=== PATIENT | female | born 1950 | race African-American/Black ===

== ENCOUNTER 2017-03-26 05:31 | Inpatient (IN) ==
[2017-03-12 10:33] LABS: Basophils % 0.2 % (0.0-0.8); Immature Granulocytes % 0.3 %; Immature Granulocytes Absolute 0.03 #; Lymphocytes # 4.4 10*3/uL (1.4-4.0); Mean Corpuscular HGB Conc 32.4 GM/DL (32-36); Mean Corpuscular Hemoglobin 28 PG (27-34); Mean Corpuscular Volume 85.4 FL (87-102); Mean Platelet Volume 9.7 FL (9.6-12.0); Monocytes # 0.7 10*3/uL (0.11-0.8); Monocytes % 6.9 % (1.7-12.7); Neutrophils # 5.6 10*3/uL (1.4-7.4); Neutrophils % 51.6 % (38.7-73.9); Platelet Count 196 T/CUMM (130-400); Red Blood Count 3.98 MC/CUMM (3.8-5.5); Red Cell Distribution Width 15.6 % (9.3-17.3); White Blood Count 10.8 T/CUMM (4-12)
[2017-03-12 10:41] LABS: Apearance,Urine Slightly Hazy (Clear); Bacteria,Urine Occasional /HPF (Few); Bilirubin,Urine Negative (Negative); Blood, Urine Negative (Negative); Glucose,Urine (UA) Negative (Negative); Hyaline Casts,Urine 5 /LPF (0-3); Ketones,Urine Negative (Negative); Nitrite,Urine Negative (Negative); Protein,Urine Negative; RBC,Urine 1 /HPF (0-4); Urine Color Straw (Yellow); Urine Specific Gravity 1.005 (1.001-1.035); Urine Urobilinogen < 2.0 EU/DL (0.2-1.0); WBC,Urine 1 /HPF (0-6)
[2017-03-12 10:48] LABS: PT Patient Result 10.7 SECS; Partial Thromboplastin Time 26.6 SECS (0-40)
[2017-03-12 11:21] LABS: Albumin 2.9 G/DL (3.4-5.0); Bilirubin,Total 0.5 MG/DL (0.2-1.0); Calcium 8.8 MG/DL (8.5-10.1); Osmolality,Calculated 282.5 MOS/KG (273-304); Potassium 3.6 MMOL/L (3.5-5.1); Total Protein 7.7 G/DL (6.4-8.3)
[2017-03-26] MEDS ORDERED: VANCOMYCIN INJ 1,000 MG in SODIUM CHLORIDE 0.9% 250 ML IV ONE (06:00)
[2017-03-26] MEDS ORDERED: CLINDAMYCIN INJ 900 MG in PREMIX 1 EACH IV ONE (06:00)
[2017-03-26] MEDS ORDERED: ceFAZolin 1,000 MG VIAL ONE (06:49)
[2017-03-26] MEDS ORDERED: SODIUM CHLORIDE 0.9% 50 ML IV ONE (06:49)
[2017-03-26] MEDS ORDERED: VANCOMYCIN 1,000 MG VIAL ONE (06:49)
[2017-03-26] MEDS ORDERED: DIAZEPAM 5 MG TABLET PO ONE (07:48)
[2017-03-26] MEDS ORDERED: FAMOTIDINE 20 MG TABLET PO ONE (07:48)
[2017-03-26] MEDS: LACTATED RINGERS 1,000 ML IV SCH ×4 (07:50→13:30)
[2017-03-26] MEDS ORDERED: DIAZEPAM 5 MG TABLET ONE (07:53)
[2017-03-26] MEDS ORDERED: FAMOTIDINE 20 MG TABLET ONE (07:53)
[2017-03-26] MEDS ORDERED: BACITRACIN OINT 0.9 GM PACK TOP ONE (09:00)
[2017-03-26] MEDS ORDERED: PROPOFOL 200 MG/20 ML VIAL IV ONE (09:17)
[2017-03-26] MEDS ORDERED: ONDANSETRON 4 MG/2 ML VIAL ONE (09:17)
[2017-03-26] MEDS ORDERED: PHENYLEPHRINE 1 MG/10 ML SYRINGE IV ONE (09:17)
[2017-03-26] MEDS ORDERED: GLYCOPYRROLATE 0.4 MG/2 ML VIAL ONE (09:17)
[2017-03-26] MEDS ORDERED: LIDOCAINE 2% 5 ML VIAL ONE (09:17)
[2017-03-26] MEDS ORDERED: ROPIVACAINE 0.5% 30 ML VIAL ONE (10:26)
[2017-03-26] MEDS ORDERED: ALBUTEROL 0.63 MG/3 ML NEB RESP TX PRN (11:40)
[2017-03-26] MEDS ORDERED: DEXTROSE 50% 25 GM/50 ML VIAL IV PRN (11:50)
[2017-03-26] MEDS ORDERED: GLUCAGON 1 MG VIAL IM PRN (11:50)
[2017-03-26] MEDS ORDERED: oxyCODONE IR 5 MG TABLET PO PRN ×2 (11:51)
[2017-03-26] MEDS ORDERED: ONDANSETRON 4 MG/2 ML VIAL IV PRN (11:51)
[2017-03-26] MEDS ORDERED: KETAMINE 500 MG/10 ML VIAL ONE (11:52)
[2017-03-26] MEDS ORDERED: fentaNYL 100 MCG/2 ML VIAL ONE (11:53)
[2017-03-26] MEDS ORDERED: LACTATED RINGERS 1,000 ML IV ONE (11:53)
[2017-03-26] MEDS ORDERED: MIDAZOLAM 2 MG/2 ML VIAL ONE (11:53)
[2017-03-26] MEDS ORDERED: ACETAMINOPHEN 1,000 MG/100 ML VIAL IV ONE (11:53)
[2017-03-26] MEDS ORDERED: SODIUM CHLORIDE 0.9% 200 ML IV ONE (11:54)
[2017-03-26] MEDS ORDERED: INFLUENZA VIRUS VACCINE 0.5 ML SYRINGE IM ONE (13:44)
[2017-03-26] MEDS: MORPHINE 2 MG/1 ML SYRINGE IV PRN ×3 (14:09→21:33)
[2017-03-26] MEDS: KETOROLAC 30 MG/1 ML VIAL IV SCH ×2 (14:10→17:34)
[2017-03-26] MEDS: LOSARTAN/HCTZ 50-12.5 MG TABLET PO SCH (15:27)
[2017-03-26] MEDS: FUROSEMIDE 40 MG TABLET PO SCH ×2 (15:27→15:35)
[2017-03-26] MEDS: ACETAMINOPHEN 500 MG TABLET PO SCH (15:27)
[2017-03-26] MEDS: POTASSIUM CHLORIDE INJ 20 MEQ in LACTATED RINGERS 1,000 ML IV SCH ×2 (15:28→20:14)
[2017-03-26] MEDS: CLINDAMYCIN INJ 900 MG in PREMIX 1 EACH IV SCH (15:35)
[2017-03-26] MEDS: INSULIN ASPART PROTAMINE/ASPART 70/30 100 UNIT/ML SUBCUT SCH (17:33)
[2017-03-26] MEDS: INSULIN LISPRO 100 UNIT/ML SUBCUT SCH ×2 (17:34→21:33)
[2017-03-26] MEDS: GABAPENTIN 300 MG CAPSULE PO SCH (21:34)
[2017-03-26] MEDS: DOCUSATE SODIUM 100 MG CAPSULE PO SCH (21:34)
[2017-03-26] MEDS: POTASSIUM CHLORIDE 10 MEQ TABLET PO SCH (21:34)
[2017-03-27] MEDS: ACETAMINOPHEN 500 MG TABLET PO SCH ×3 (00:17→10:37)
[2017-03-27] MEDS: KETOROLAC 30 MG/1 ML VIAL IV SCH ×2 (00:17→06:17)
[2017-03-27] MEDS: CLINDAMYCIN INJ 900 MG in PREMIX 1 EACH IV SCH (00:17)
[2017-03-27 03:48] LABS: Basophils % 0.1 % (0.0-0.8); Hemoglobin 8.8 GM/DL (12.0-16.0); Immature Granulocytes % 0.3 %; Immature Granulocytes Absolute 0.04 #; Lymphocytes # 3.1 10*3/uL (1.4-4.0); Mean Corpuscular HGB Conc 32.6 GM/DL (32-36); Mean Corpuscular Hemoglobin 28 PG (27-34); Mean Corpuscular Volume 86.3 FL (87-102); Monocytes # 1.6 10*3/uL (0.11-0.8); Monocytes % 11.8 % (1.7-12.7); Neutrophils # 8.9 10*3/uL (1.4-7.4); Neutrophils % 64.8 % (38.7-73.9); Platelet Count 169 T/CUMM (130-400); Red Blood Count 3.13 MC/CUMM (3.8-5.5); White Blood Count 13.7 T/CUMM (4-12)
[2017-03-27] MEDS: POTASSIUM CHLORIDE INJ 20 MEQ in LACTATED RINGERS 1,000 ML IV SCH ×2 (04:00→04:09)
[2017-03-27 04:25] LABS: Calcium 7.9 MG/DL (8.5-10.1); Osmolality,Calculated 282.3 MOS/KG (273-304); Potassium 3.9 MMOL/L (3.5-5.1)
[2017-03-27] MEDS: FONDAPARINUX 2.5 MG/0.5 ML SYRINGE SUBCUT SCH (06:17)
[2017-03-27] MEDS: LEVOTHYROXINE 25 MCG TABLET PO SCH (06:17)
[2017-03-27] MEDS: MORPHINE 2 MG/1 ML SYRINGE IV PRN ×2 (06:26→13:08)
[2017-03-27] MEDS: LACTATED RINGERS 1,000 ML IV SCH (06:30)
[2017-03-27] MEDS: INSULIN LISPRO 100 UNIT/ML SUBCUT SCH ×4 (07:30→20:55)
[2017-03-27] MEDS: ARIPiprazole 10 MG TABLET PO SCH (09:08)
[2017-03-27] MEDS: FUROSEMIDE 40 MG TABLET PO SCH ×2 (09:08→18:07)
[2017-03-27] MEDS: DOCUSATE SODIUM 100 MG CAPSULE PO SCH ×2 (09:09→20:57)
[2017-03-27] MEDS: MONTELUKAST 10 MG TABLET PO SCH (09:10)
[2017-03-27] MEDS: PARoxetine 20 MG TABLET PO SCH (09:10)
[2017-03-27] MEDS: POTASSIUM CHLORIDE 10 MEQ TABLET PO SCH ×2 (09:10→20:57)
[2017-03-27] MEDS: GABAPENTIN 300 MG CAPSULE PO SCH ×2 (09:10→20:58)
[2017-03-27] MEDS: CHOLECALCIFEROL 1,000 UNIT TABLET PO SCH (09:10)
[2017-03-27] MEDS: PANTOPRAZOLE 40 MG TABLET PO SCH (09:10)
[2017-03-27] MEDS: INSULIN ASPART PROTAMINE/ASPART 70/30 100 UNIT/ML SUBCUT SCH ×2 (09:13→18:09)
[2017-03-27] MEDS: LOSARTAN/HCTZ 50-12.5 MG TABLET PO SCH (09:17)
[2017-03-27] MEDS: NEBIVOLOL 10 MG TABLET PO SCH (09:17)
[2017-03-27] MEDS: ZINC OXIDE PASTE 113 GM TUBE TOP SCH ×2 (10:30→21:00)
[2017-03-27] MEDS: CELECOXIB 200 MG CAPSULE PO SCH (18:09)
[2017-03-28] MEDS: MORPHINE 2 MG/1 ML SYRINGE IV PRN ×3 (03:15→14:28)
[2017-03-28 05:03] LABS: Basophils % 0.2 % (0.0-0.8); Eosinophils % 0.1 % (0.00-10.9); Hematocrit 24.3 VOL% (35.7-47.0); Hemoglobin 7.8 GM/DL (12.0-16.0); Immature Granulocytes % 0.2 %; Immature Granulocytes Absolute 0.03 #; Lymphocytes # 3.4 10*3/uL (1.4-4.0); Lymphocytes % 27.3 % (21.3-54.2); Mean Corpuscular HGB Conc 32.1 GM/DL (32-36); Mean Corpuscular Hemoglobin 28 PG (27-34); Mean Corpuscular Volume 87.7 FL (87-102); Mean Platelet Volume 10.5 FL (9.6-12.0); Monocytes # 1.5 10*3/uL (0.11-0.8); Monocytes % 12.4 % (1.7-12.7); Neutrophils # 7.4 10*3/uL (1.4-7.4); Neutrophils % 59.8 % (38.7-73.9); Platelet Count 157 T/CUMM (130-400); Red Blood Count 2.77 MC/CUMM (3.8-5.5); Red Cell Distribution Width 16.6 % (9.3-17.3); White Blood Count 12.4 T/CUMM (4-12)
[2017-03-28] MEDS ORDERED: FUROSEMIDE 40 MG/4 ML VIAL IV PRN (06:17)
[2017-03-28] MEDS: LEVOTHYROXINE 25 MCG TABLET PO SCH (06:17)
[2017-03-28] MEDS: FONDAPARINUX 2.5 MG/0.5 ML SYRINGE SUBCUT SCH (06:17)
[2017-03-28] MEDS ORDERED: SODIUM CHLORIDE 0.9% 250 ML IV PRN (06:17)
[2017-03-28] MEDS: FUROSEMIDE 40 MG TABLET PO SCH ×2 (08:53→17:10)
[2017-03-28] MEDS: INSULIN LISPRO 100 UNIT/ML SUBCUT SCH ×4 (08:53→21:08)
[2017-03-28] MEDS: DOCUSATE SODIUM 100 MG CAPSULE PO SCH ×2 (08:54→21:07)
[2017-03-28] MEDS: ARIPiprazole 10 MG TABLET PO SCH (08:54)
[2017-03-28] MEDS: LOSARTAN/HCTZ 50-12.5 MG TABLET PO SCH (08:54)
[2017-03-28] MEDS: NEBIVOLOL 10 MG TABLET PO SCH (08:54)
[2017-03-28] MEDS: CELECOXIB 200 MG CAPSULE PO SCH (08:54)
[2017-03-28] MEDS: PARoxetine 20 MG TABLET PO SCH (08:55)
[2017-03-28] MEDS: POTASSIUM CHLORIDE 10 MEQ TABLET PO SCH ×2 (08:55→21:07)
[2017-03-28] MEDS: GABAPENTIN 300 MG CAPSULE PO SCH ×2 (08:55→21:07)
[2017-03-28] MEDS: MONTELUKAST 10 MG TABLET PO SCH (08:56)
[2017-03-28] MEDS: PANTOPRAZOLE 40 MG TABLET PO SCH (08:56)
[2017-03-28] MEDS: CHOLECALCIFEROL 1,000 UNIT TABLET PO SCH (08:56)
[2017-03-28] MEDS: INSULIN ASPART PROTAMINE/ASPART 70/30 100 UNIT/ML SUBCUT SCH ×2 (09:00→17:11)
[2017-03-28] MEDS: MAGNESIUM HYDROXIDE SUSP 30 ML UDCUP PO PRN ×2 (09:00→21:07)
[2017-03-28] MEDS: ZINC OXIDE PASTE 113 GM TUBE TOP SCH ×2 (11:44→21:08)
[2017-03-29 05:37] LABS: Basophils % 0.2 % (0.0-0.8); Eosinophils # 0.6 10*3/uL (0.0-0.87); Eosinophils % 4.7 % (0.00-10.9); Hematocrit 29.2 VOL% (35.7-47.0); Hemoglobin 9.5 GM/DL (12.0-16.0); Immature Granulocytes % 0.3 %; Immature Granulocytes Absolute 0.04 #; Lymphocytes # 3.8 10*3/uL (1.4-4.0); Mean Corpuscular HGB Conc 32.5 GM/DL (32-36); Mean Corpuscular Hemoglobin 28 PG (27-34); Mean Corpuscular Volume 86.1 FL (87-102); Mean Platelet Volume 10.7 FL (9.6-12.0); Monocytes # 1.6 10*3/uL (0.11-0.8); Monocytes % 13.3 % (1.7-12.7); Neutrophils # 6.2 10*3/uL (1.4-7.4); Neutrophils % 50.5 % (38.7-73.9); Platelet Count 147 T/CUMM (130-400); Red Blood Count 3.39 MC/CUMM (3.8-5.5); Red Cell Distribution Width 17.3 % (9.3-17.3); White Blood Count 12.2 T/CUMM (4-12)
[2017-03-29] MEDS: FONDAPARINUX 2.5 MG/0.5 ML SYRINGE SUBCUT SCH (05:59)
[2017-03-29] MEDS: LEVOTHYROXINE 25 MCG TABLET PO SCH (06:00)
[2017-03-29] MEDS: INSULIN LISPRO 100 UNIT/ML SUBCUT SCH ×2 (07:57→12:18)
[2017-03-29] MEDS: FUROSEMIDE 40 MG TABLET PO SCH (10:22)
[2017-03-29] MEDS: LOSARTAN/HCTZ 50-12.5 MG TABLET PO SCH (10:22)
[2017-03-29] MEDS: CELECOXIB 200 MG CAPSULE PO SCH (10:22)
[2017-03-29] MEDS: NEBIVOLOL 10 MG TABLET PO SCH (10:23)
[2017-03-29] MEDS: POTASSIUM CHLORIDE 10 MEQ TABLET PO SCH (10:23)
[2017-03-29] MEDS: MONTELUKAST 10 MG TABLET PO SCH (10:23)
[2017-03-29] MEDS: ARIPiprazole 10 MG TABLET PO SCH (10:23)
[2017-03-29] MEDS: DOCUSATE SODIUM 100 MG CAPSULE PO SCH (10:23)
[2017-03-29] MEDS: CHOLECALCIFEROL 1,000 UNIT TABLET PO SCH (10:23)
[2017-03-29] MEDS: PARoxetine 20 MG TABLET PO SCH (10:24)
[2017-03-29] MEDS: PANTOPRAZOLE 40 MG TABLET PO SCH (10:24)
[2017-03-29] MEDS: GABAPENTIN 300 MG CAPSULE PO SCH (10:24)
[2017-03-29] MEDS: INSULIN ASPART PROTAMINE/ASPART 70/30 100 UNIT/ML SUBCUT SCH (10:28)
[2017-03-29] MEDS: ZINC OXIDE PASTE 113 GM TUBE TOP SCH (10:29)
[2017-03-29 11:12] VITALS: BP 130/73
== END 2017-03-29 12:17 | DRG 470 ==
LOC: N.OR 05:31 → N.SDSINP 05:32 → N.3E 11:51
PROVIDERS: ADMIT Orthopaedic Surgery; ATTEND Orthopaedic Surgery

== ENCOUNTER 2020-04-06 10:48 | Inpatient (IN) ==
[2020-04-06] MEDS ORDERED: ONDANSETRON 4 MG/2 ML VIAL IV STA (11:38)
[2020-04-06] MEDS ORDERED: MORPHINE 4 MG/1 ML VIAL IV STA (13:14)
[2020-04-06 13:28] LABS: Bilirubin,Urine Negative (Negative); Blood, Urine Negative (Negative); Glucose,Urine (UA) Negative (Negative); Ketones,Urine Negative (Negative); Mucus,Urine Occasional /LPF (Occasional); Nitrite,Urine Negative (Negative); Protein,Urine Negative; RBC,Urine 1 /HPF (0-4); Squamous Epithelial Cell,Urine Occasional /HPF (0-10); Urine Appearance CLEAR (Clear); Urine Color Yellow (Yellow); Urine Urobilinogen < 2.0 EU/DL (0.2-1.0); WBC,Urine 1 /HPF (0-6)
[2020-04-06 13:39] LABS: Basophils % 0.1 % (0.0-0.8); Hematocrit 36.1 VOL% (35.7-47.0); Hemoglobin 11.8 GM/DL (12.0-16.0); Immature Granulocytes % 0.6 %; Immature Granulocytes Absolute 0.09 #; Lymphocytes # 1.7 10*3/uL (1.4-4.0); Lymphocytes % 12.1 % (21.3-54.2); Mean Corpuscular HGB Conc 32.7 GM/DL (32-36); Mean Corpuscular Volume 86.4 FL (87-102); Mean Platelet Volume 10.2 FL (9.6-12.0); Monocytes % 7.1 % (1.7-12.7); Neutrophils % 80.1 % (38.7-73.9); Platelet Count 263 T/CUMM (130-400); Red Blood Count 4.18 MC/CUMM (3.8-5.5); White Blood Count 14.3 T/CUMM (4-12)
[2020-04-06 14:13] LABS: Albumin 3.3 G/DL (3.4-5.0); Bilirubin,Total 0.6 MG/DL (0.2-1.0); Calcium 9.4 MG/DL (8.5-10.1); Total Protein 8.7 G/DL (6.4-8.3)
[2020-04-06] MEDS ORDERED: DEXTROSE 50% 25 GM/50 ML VIAL IV PRN (14:58)
[2020-04-06] MEDS ORDERED: GLUCAGON 1 MG VIAL IM PRN (14:58)
[2020-04-06] MEDS ORDERED: HYDROmorphone 2 MG/1 ML VIAL IV STA (15:07)
[2020-04-06] MEDS ORDERED: CEFAZOLIN IV SCH (16:00)
[2020-04-06] MEDS: SODIUM CHLORIDE 0.9% 1,000 ML IV SCH (16:07)
[2020-04-06] MEDS: INSULIN LISPRO 100 UNIT/ML SUBCUT SCH (19:09)
[2020-04-06] MEDS ORDERED: INFLUENZA VIRUS VACCINE 0.5 ML SYRINGE IM ONE (19:17)
[2020-04-06] MEDS: HYDROmorphone 2 MG/1 ML VIAL IV PRN (21:09)
[2020-04-07 01:50] LABS: Bilirubin,Urine Negative (Negative); Blood, Urine Negative (Negative); Glucose,Urine (UA) Negative (Negative); Ketones,Urine 5 mg/dL (Negative); Mucus,Urine Occasional /LPF (Occasional); Nitrite,Urine Negative (Negative); Protein,Urine Negative; RBC,Urine 4 /HPF (0-4); Squamous Epithelial Cell,Urine Occasional /HPF (0-10); Urine Appearance CLEAR (Clear); Urine Color Yellow (Yellow); Urine Specific Gravity 1.058 (1.001-1.035); Urine Urobilinogen < 2.0 EU/DL (0.2-1.0); WBC,Urine 1 /HPF (0-6)
[2020-04-07] MEDS: HYDROmorphone 2 MG/1 ML VIAL IV PRN ×5 (03:03→20:57)
[2020-04-07] MEDS: SODIUM CHLORIDE 0.9% 1,000 ML IV SCH ×3 (05:06→23:55)
[2020-04-07 05:47] LABS: Basophils % 0.2 % (0.0-0.8); Eosinophils % 0.1 % (0.00-10.9); Hematocrit 36.3 VOL% (35.7-47.0); Hemoglobin 11.5 GM/DL (12.0-16.0); Immature Granulocytes % 0.5 %; Immature Granulocytes Absolute 0.08 #; Lymphocytes # 1.8 10*3/uL (1.4-4.0); Lymphocytes % 11.6 % (21.3-54.2); Mean Corpuscular HGB Conc 31.7 GM/DL (32-36); Mean Corpuscular Volume 87.1 FL (87-102); Mean Platelet Volume 10.8 FL (9.6-12.0); Monocytes % 12.1 % (1.7-12.7); Neutrophils % 75.5 % (38.7-73.9); Platelet Count 228 T/CUMM (130-400); Red Blood Count 4.17 MC/CUMM (3.8-5.5); White Blood Count 15.5 T/CUMM (4-12)
[2020-04-07 06:39] LABS: Albumin 2.7 G/DL (3.4-5.0); Bilirubin,Total 0.8 MG/DL (0.2-1.0); Calcium 9.3 MG/DL (8.5-10.1); Osmolality,Calculated 280.5 MOS/KG (273-304); Risk Ratio 2.64; Thyroid Stimulating Hormone 7.81 uIU/ml (0.358-3.74); Total Protein 8.5 G/DL (6.4-8.3); VLDL CHOLESTEROL 16.8 MG/DL
[2020-04-07] MEDS: INSULIN LISPRO 100 UNIT/ML SUBCUT SCH ×5 (08:02→20:48)
[2020-04-07] MEDS: PANTOPRAZOLE 40 MG VIAL IV SCH (08:03)
[2020-04-07] MEDS: risperiDONE 1 MG TABLET PO SCH (20:58)
[2020-04-07] MEDS: CARBIDOPA/LEVODOPA 10-100 MG TABLET PO SCH (20:58)
[2020-04-07] MEDS: BUDESONIDE/FORMOTEROL 160-4.5 INHALER 6 GM INH SCH (20:58)
[2020-04-08] MEDS: HYDROmorphone 2 MG/1 ML VIAL IV PRN ×4 (02:40→18:51)
[2020-04-08 05:58] LABS: Basophils % 0.1 % (0.0-0.8); Hematocrit 35.6 VOL% (35.7-47.0); Hemoglobin 11.3 GM/DL (12.0-16.0); Immature Granulocytes % 0.7 %; Lymphocytes # 1.9 10*3/uL (1.4-4.0); Lymphocytes % 12.4 % (21.3-54.2); Mean Corpuscular HGB Conc 31.7 GM/DL (32-36); Mean Corpuscular Volume 89.4 FL (87-102); Monocytes % 12.6 % (1.7-12.7); Neutrophils % 74.2 % (38.7-73.9); Platelet Count 231 T/CUMM (130-400); Red Blood Count 3.98 MC/CUMM (3.8-5.5); Red Cell Distribution Width 15.4 % (9.3-17.3)
[2020-04-08 06:23] LABS: Albumin 2.7 G/DL (3.4-5.0); Bilirubin,Total 0.7 MG/DL (0.2-1.0); Calcium 8.9 MG/DL (8.5-10.1); Osmolality,Calculated 290.7 MOS/KG (273-304); Total Protein 8.4 G/DL (6.4-8.3)
[2020-04-08] MEDS ORDERED: LEVOTHYROXINE 75 MCG TABLET PO SCH (07:00)
[2020-04-08] MEDS: INSULIN LISPRO 100 UNIT/ML SUBCUT SCH ×5 (07:54→22:21)
[2020-04-08] MEDS ORDERED: LOSARTAN 50 MG TABLET PO SCH (09:00)
[2020-04-08] MEDS ORDERED: hydroCHLOROthiazide 25 MG TABLET PO SCH (09:00)
[2020-04-08] MEDS: PANTOPRAZOLE 40 MG VIAL IV SCH (10:16)
[2020-04-08] MEDS: risperiDONE 1 MG TABLET PO SCH ×2 (10:18→22:20)
[2020-04-08] MEDS: SERTRALINE 50 MG TABLET PO SCH (10:19)
[2020-04-08] MEDS: ASPIRIN EC 81 MG TABLET PO SCH (10:19)
[2020-04-08] MEDS: CYANOCOBALAMIN 500 MCG TABLET PO SCH (10:19)
[2020-04-08] MEDS: CHOLECALCIFEROL 1,000 UNIT TABLET PO SCH (10:19)
[2020-04-08] MEDS: SPIRONOLACTONE 100 MG TABLET PO SCH (10:20)
[2020-04-08] MEDS: MONTELUKAST 10 MG TABLET PO SCH (10:20)
[2020-04-08] MEDS: SODIUM CHLORIDE 0.9% 1,000 ML IV SCH ×2 (10:29→22:22)
[2020-04-08] MEDS: CARBIDOPA/LEVODOPA 10-100 MG TABLET PO SCH ×3 (10:29→22:20)
[2020-04-08] MEDS: POLYETHYLENE GLYCOL POWDER 17 GM PACK PO SCH (10:31)
[2020-04-08] MEDS: DULoxetine 30 MG CAPSULE PO SCH (10:32)
[2020-04-08] MEDS: BUDESONIDE/FORMOTEROL 160-4.5 INHALER 6 GM INH SCH (10:36)
[2020-04-08] MEDS: TRACE ELEMENTS (5) 1 ML, MULTIVITAMIN INJ 10 ML in AMINO ACIDS/DEXT/LYTES 4.25-5% 2,000 ML IV SCH (17:09)
[2020-04-08] MEDS: INSULIN GLARGINE 100 UNIT/ML SUBCUT SCH (22:21)
[2020-04-09] MEDS: HYDROmorphone 2 MG/1 ML VIAL IV PRN ×5 (00:07→19:42)
[2020-04-09] MEDS: BUDESONIDE/FORMOTEROL 160-4.5 INHALER 6 GM INH SCH ×2 (00:09→09:08)
[2020-04-09] MEDS: LEVOTHYROXINE 88 MCG TABLET PO SCH (06:03)
[2020-04-09 06:28] LABS: Basophils % 0.1 % (0.0-0.8); Hematocrit 34.4 VOL% (35.7-47.0); Hemoglobin 10.8 GM/DL (12.0-16.0); Immature Granulocytes % 0.6 %; Lymphocytes # 2.4 10*3/uL (1.4-4.0); Lymphocytes % 13.2 % (21.3-54.2); Mean Corpuscular HGB Conc 31.4 GM/DL (32-36); Mean Corpuscular Volume 88.9 FL (87-102); Monocytes % 15.4 % (1.7-12.7); Neutrophils % 70.7 % (38.7-73.9); Platelet Count 223 T/CUMM (130-400); Red Blood Count 3.87 MC/CUMM (3.8-5.5); Red Cell Distribution Width 15.4 % (9.3-17.3)
[2020-04-09 06:35] LABS: Calcium 8.3 MG/DL (8.5-10.1); Osmolality,Calculated 297.8 MOS/KG (273-304)
[2020-04-09 06:38] LABS: Albumin 2.5 G/DL (3.4-5.0); Bilirubin,Total 0.9 MG/DL (0.2-1.0); Calcium 8.3 MG/DL (8.5-10.1); Osmolality,Calculated 297.8 MOS/KG (273-304); Total Protein 8.1 G/DL (6.4-8.3)
[2020-04-09] MEDS: INSULIN LISPRO 100 UNIT/ML SUBCUT SCH ×4 (09:01→21:53)
[2020-04-09] MEDS: POLYETHYLENE GLYCOL POWDER 17 GM PACK PO SCH (09:02)
[2020-04-09] MEDS: CYANOCOBALAMIN 500 MCG TABLET PO SCH (09:03)
[2020-04-09] MEDS: CHOLECALCIFEROL 1,000 UNIT TABLET PO SCH (09:04)
[2020-04-09] MEDS: DULoxetine 30 MG CAPSULE PO SCH (09:04)
[2020-04-09] MEDS: SPIRONOLACTONE 100 MG TABLET PO SCH (09:04)
[2020-04-09] MEDS: CARBIDOPA/LEVODOPA 10-100 MG TABLET PO SCH ×3 (09:04→21:52)
[2020-04-09] MEDS: PANTOPRAZOLE 40 MG VIAL IV SCH (09:05)
[2020-04-09] MEDS: SODIUM CHLORIDE 0.9% 1,000 ML IV SCH (09:07)
[2020-04-09] MEDS: risperiDONE 1 MG TABLET PO SCH ×2 (09:08→21:52)
[2020-04-09] MEDS: ASPIRIN EC 81 MG TABLET PO SCH (09:08)
[2020-04-09] MEDS: MONTELUKAST 10 MG TABLET PO SCH (09:13)
[2020-04-09] MEDS: SERTRALINE 50 MG TABLET PO SCH (09:15)
[2020-04-09] MEDS ORDERED: SODIUM CHLORIDE 0.9% 2,000 ML IV ONE (10:21)
[2020-04-09] MEDS: TRACE ELEMENTS (5) 1 ML, MULTIVITAMIN INJ 10 ML in AMINO ACIDS/DEXT/LYTES 4.25-5% 2,000 ML IV SCH (13:51)
[2020-04-09] MEDS: INSULIN GLARGINE 100 UNIT/ML SUBCUT SCH (21:53)
[2020-04-10] MEDS: HYDROmorphone 2 MG/1 ML VIAL IV PRN ×6 (00:52→23:04)
[2020-04-10] MEDS: SODIUM CHLORIDE 0.9% 1,000 ML IV SCH ×3 (00:53→15:17)
[2020-04-10] MEDS: BUDESONIDE/FORMOTEROL 160-4.5 INHALER 6 GM INH SCH ×3 (00:53→23:09)
[2020-04-10] MEDS: LEVOTHYROXINE 88 MCG TABLET PO SCH (06:00)
[2020-04-10 07:07] LABS: Basophils % 0.2 % (0.0-0.8); Eosinophils % 0.1 % (0.00-10.9); Hematocrit 30.8 VOL% (35.7-47.0); Hemoglobin 9.5 GM/DL (12.0-16.0); Immature Granulocytes % 0.6 %; Immature Granulocytes Absolute 0.09 #; Lymphocytes # 2.4 10*3/uL (1.4-4.0); Lymphocytes % 16.1 % (21.3-54.2); Mean Corpuscular HGB Conc 30.8 GM/DL (32-36); Mean Platelet Volume 10.1 FL (9.6-12.0); Monocytes % 17.3 % (1.7-12.7); Neutrophils % 65.7 % (38.7-73.9); Platelet Count 185 T/CUMM (130-400); Red Blood Count 3.46 MC/CUMM (3.8-5.5); Red Cell Distribution Width 15.5 % (9.3-17.3); White Blood Count 14.8 T/CUMM (4-12)
[2020-04-10 07:31] LABS: Calcium 8.1 MG/DL (8.5-10.1); Osmolality,Calculated 290.1 MOS/KG (273-304)
[2020-04-10] MEDS: PANTOPRAZOLE 40 MG VIAL IV SCH (09:04)
[2020-04-10] MEDS: INSULIN LISPRO 100 UNIT/ML SUBCUT SCH ×4 (09:09→23:05)
[2020-04-10] MEDS: CARBIDOPA/LEVODOPA 10-100 MG TABLET PO SCH ×3 (09:11→23:05)
[2020-04-10] MEDS: SPIRONOLACTONE 100 MG TABLET PO SCH (09:12)
[2020-04-10] MEDS: ASPIRIN EC 81 MG TABLET PO SCH (09:13)
[2020-04-10] MEDS: DULoxetine 30 MG CAPSULE PO SCH (09:13)
[2020-04-10] MEDS: MONTELUKAST 10 MG TABLET PO SCH (09:13)
[2020-04-10] MEDS: risperiDONE 1 MG TABLET PO SCH ×2 (09:13→23:05)
[2020-04-10] MEDS: POLYETHYLENE GLYCOL POWDER 17 GM PACK PO SCH (09:17)
[2020-04-10] MEDS: SERTRALINE 50 MG TABLET PO SCH (09:21)
[2020-04-10] MEDS: CHOLECALCIFEROL 1,000 UNIT TABLET PO SCH (09:21)
[2020-04-10] MEDS: CYANOCOBALAMIN 500 MCG TABLET PO SCH (09:21)
[2020-04-10] MEDS ORDERED: INSULIN GLARGINE 100 UNIT/ML SUBCUT SCH (10:13)
[2020-04-10 11:02] LABS: Eosinophils 2 % (0-10); Lymphocytes 10 % (20-55); Ovalocytes Few; Polychromasia Slight; Schistocytes Few; Segmented Neutrophils 81 % (50-85); Target Cells Slight; Total Cells Counted 100
[2020-04-10 11:03] LABS: Hypochromasia 2+; Platelet Estimate Adequate
[2020-04-10] MEDS: TRACE ELEMENTS (5) 1 ML, MULTIVITAMIN INJ 10 ML in AMINO ACIDS/DEXT/LYTES 4.25-5% 2,000 ML IV SCH (13:03)
[2020-04-11] MEDS: SODIUM CHLORIDE 0.9% 1,000 ML IV SCH ×3 (02:09→23:16)
[2020-04-11] MEDS: HYDROmorphone 2 MG/1 ML VIAL IV PRN ×5 (02:25→20:21)
[2020-04-11] MEDS: LEVOTHYROXINE 88 MCG TABLET PO SCH (06:11)
[2020-04-11 06:25] LABS: Basophils % 0.2 % (0.0-0.8); Eosinophils # 0.1 10*3/uL (0.0-0.87); Eosinophils % 0.5 % (0.00-10.9); Hematocrit 32.2 VOL% (35.7-47.0); Hemoglobin 9.8 GM/DL (12.0-16.0); Immature Granulocytes % 0.5 %; Immature Granulocytes Absolute 0.06 #; Lymphocytes # 2.1 10*3/uL (1.4-4.0); Lymphocytes % 16.7 % (21.3-54.2); Mean Corpuscular HGB Conc 30.4 GM/DL (32-36); Mean Corpuscular Volume 91.5 FL (87-102); Mean Platelet Volume 10.3 FL (9.6-12.0); Monocytes % 15.4 % (1.7-12.7); Neutrophils % 66.7 % (38.7-73.9); Platelet Count 181 T/CUMM (130-400); Red Blood Count 3.52 MC/CUMM (3.8-5.5); Red Cell Distribution Width 15.7 % (9.3-17.3); White Blood Count 12.3 T/CUMM (4-12)
[2020-04-11 06:50] LABS: Osmolality,Calculated 295.8 MOS/KG (273-304)
[2020-04-11] MEDS: INSULIN LISPRO 100 UNIT/ML SUBCUT SCH ×4 (09:17→21:44)
[2020-04-11] MEDS: SERTRALINE 50 MG TABLET PO SCH (09:18)
[2020-04-11] MEDS: DULoxetine 30 MG CAPSULE PO SCH (09:19)
[2020-04-11] MEDS: risperiDONE 1 MG TABLET PO SCH ×2 (09:19→20:21)
[2020-04-11] MEDS: CARBIDOPA/LEVODOPA 10-100 MG TABLET PO SCH ×3 (09:20→20:21)
[2020-04-11] MEDS: MONTELUKAST 10 MG TABLET PO SCH (09:20)
[2020-04-11] MEDS: SPIRONOLACTONE 100 MG TABLET PO SCH (09:20)
[2020-04-11] MEDS: ASPIRIN EC 81 MG TABLET PO SCH (09:20)
[2020-04-11] MEDS: CHOLECALCIFEROL 1,000 UNIT TABLET PO SCH (09:20)
[2020-04-11] MEDS: CYANOCOBALAMIN 500 MCG TABLET PO SCH (09:20)
[2020-04-11] MEDS: BUDESONIDE/FORMOTEROL 160-4.5 INHALER 6 GM INH SCH ×2 (09:21→21:49)
[2020-04-11] MEDS: PANTOPRAZOLE 40 MG VIAL IV SCH (09:21)
[2020-04-11] MEDS: POLYETHYLENE GLYCOL POWDER 17 GM PACK PO SCH (09:22)
[2020-04-11] MEDS: TRACE ELEMENTS (5) 1 ML, MULTIVITAMIN INJ 10 ML in AMINO ACIDS/DEXT/LYTES 4.25-5% 2,000 ML IV SCH (10:11)
[2020-04-11] MEDS ORDERED: ALBUTEROL/IPRATROPIUM 3 ML NEB RESP TX PRN (13:40)
[2020-04-11] MEDS ORDERED: TRACE ELEMENTS (5) 1 ML, MULTIVITAMIN INJ 10 ML in AMINO ACIDS/DEXT/LYTES 5-15% 1,000 ML IV SCH (17:00)
[2020-04-11] MEDS: FAT EMULSION 20% 250 ML IV SCH (18:06)
[2020-04-11] MEDS: INSULIN GLARGINE 100 UNIT/ML SUBCUT SCH (21:44)
[2020-04-12] MEDS: HYDROmorphone 2 MG/1 ML VIAL IV PRN ×5 (01:01→20:39)
[2020-04-12 06:42] LABS: Basophils % 0.2 % (0.0-0.8); Eosinophils # 0.1 10*3/uL (0.0-0.87); Eosinophils % 0.4 % (0.00-10.9); Hematocrit 30.8 VOL% (35.7-47.0); Hemoglobin 9.6 GM/DL (12.0-16.0); Immature Granulocytes % 0.5 %; Immature Granulocytes Absolute 0.07 #; Lymphocytes # 2.6 10*3/uL (1.4-4.0); Lymphocytes % 20.4 % (21.3-54.2); Mean Corpuscular HGB Conc 31.2 GM/DL (32-36); Mean Corpuscular Volume 90.3 FL (87-102); Mean Platelet Volume 10.1 FL (9.6-12.0); Monocytes % 16.6 % (1.7-12.7); Neutrophils % 61.9 % (38.7-73.9); Platelet Count 152 T/CUMM (130-400); Red Blood Count 3.41 MC/CUMM (3.8-5.5); Red Cell Distribution Width 15.4 % (9.3-17.3); White Blood Count 12.8 T/CUMM (4-12)
[2020-04-12 07:06] LABS: Atypical Lymphocytes Few; Eosinophils 3 % (0-10); Hypochromasia 1+; Lymphocytes 28 % (20-55); Segmented Neutrophils 55 % (50-85); Total Cells Counted 100
[2020-04-12 07:07] LABS: Microcytosis 1+; Platelet Estimate Adequate; Target Cells Slight
[2020-04-12 07:10] LABS: Calcium 8.3 MG/DL (8.5-10.1); Osmolality,Calculated 284.2 MOS/KG (273-304)
[2020-04-12] MEDS: INSULIN LISPRO 100 UNIT/ML SUBCUT SCH ×4 (09:11→21:38)
[2020-04-12] MEDS: POLYETHYLENE GLYCOL POWDER 17 GM PACK PO SCH (09:12)
[2020-04-12] MEDS: DULoxetine 30 MG CAPSULE PO SCH (09:13)
[2020-04-12] MEDS: PANTOPRAZOLE 40 MG VIAL IV SCH (09:13)
[2020-04-12] MEDS: CHOLECALCIFEROL 1,000 UNIT TABLET PO SCH (09:14)
[2020-04-12] MEDS: CYANOCOBALAMIN 500 MCG TABLET PO SCH (09:14)
[2020-04-12] MEDS: risperiDONE 1 MG TABLET PO SCH ×2 (09:14→20:39)
[2020-04-12] MEDS: SERTRALINE 50 MG TABLET PO SCH (09:14)
[2020-04-12] MEDS: MONTELUKAST 10 MG TABLET PO SCH (09:14)
[2020-04-12] MEDS: CARBIDOPA/LEVODOPA 10-100 MG TABLET PO SCH ×3 (09:14→20:40)
[2020-04-12] MEDS: LEVOTHYROXINE 88 MCG TABLET PO SCH (09:14)
[2020-04-12] MEDS: SPIRONOLACTONE 100 MG TABLET PO SCH (09:14)
[2020-04-12] MEDS: ASPIRIN EC 81 MG TABLET PO SCH (09:15)
[2020-04-12] MEDS: BUDESONIDE/FORMOTEROL 160-4.5 INHALER 6 GM INH SCH ×2 (09:16→21:39)
[2020-04-12] MEDS: SODIUM CHLORIDE 0.9% 1,000 ML IV SCH (12:39)
[2020-04-12] MEDS: FAT EMULSION 20% 250 ML IV SCH (14:46)
[2020-04-12] MEDS: CIPROFLOXACIN INJ 200 MG in PREMIX 1 EACH IV SCH (14:54)
[2020-04-12] MEDS: TRACE ELEMENTS (5) 1 ML, MULTIVITAMIN INJ 10 ML in AMINO ACIDS/DEXT/LYTES 5-15% 2,000 ML IV SCH (16:26)
[2020-04-12] MEDS: metroNIDAZOLE INJ 500 MG in PREMIX 1 EACH IV SCH ×2 (16:28→21:38)
[2020-04-12] MEDS: ONDANSETRON 4 MG/2 ML VIAL IV PRN (20:39)
[2020-04-12] MEDS: INSULIN GLARGINE 100 UNIT/ML SUBCUT SCH (21:38)
[2020-04-13] MEDS: CIPROFLOXACIN INJ 200 MG in PREMIX 1 EACH IV SCH ×2 (00:44→13:39)
[2020-04-13] MEDS: HYDROmorphone 2 MG/1 ML VIAL IV PRN ×5 (00:49→20:49)
[2020-04-13] MEDS: ONDANSETRON 4 MG/2 ML VIAL IV PRN ×2 (00:49→11:56)
[2020-04-13] MEDS: LEVOTHYROXINE 88 MCG TABLET PO SCH (06:24)
[2020-04-13] MEDS: metroNIDAZOLE INJ 500 MG in PREMIX 1 EACH IV SCH ×3 (06:36→21:32)
[2020-04-13 07:27] LABS: Basophils % 0.2 % (0.0-0.8); Eosinophils % 0.1 % (0.00-10.9); Hematocrit 28.7 VOL% (35.7-47.0); Hemoglobin 9.1 GM/DL (12.0-16.0); Immature Granulocytes % 0.6 %; Immature Granulocytes Absolute 0.07 #; Lymphocytes # 2.7 10*3/uL (1.4-4.0); Lymphocytes % 23.1 % (21.3-54.2); Mean Corpuscular HGB Conc 31.7 GM/DL (32-36); Mean Corpuscular Volume 89.1 FL (87-102); Mean Platelet Volume 10.7 FL (9.6-12.0); Monocytes % 16.3 % (1.7-12.7); Neutrophils % 59.7 % (38.7-73.9); Platelet Count 166 T/CUMM (130-400); Red Blood Count 3.22 MC/CUMM (3.8-5.5); Red Cell Distribution Width 15.6 % (9.3-17.3); White Blood Count 11.7 T/CUMM (4-12)
[2020-04-13 07:46] LABS: Eosinophils 2 % (0-10); Lymphocytes 15 % (20-55); Segmented Neutrophils 72 % (50-85); Total Cells Counted 100
[2020-04-13 07:47] LABS: Hypochromasia 1+; Microcytosis 1+; Ovalocytes Slight; Platelet Estimate Adequate
[2020-04-13 07:48] LABS: Albumin 1.9 G/DL (3.4-5.0); Bilirubin,Total 0.5 MG/DL (0.2-1.0); Calcium 8.1 MG/DL (8.5-10.1); Total Protein 6.9 G/DL (6.4-8.3)
[2020-04-13] MEDS: SODIUM CHLORIDE 0.9% 1,000 ML IV SCH ×2 (08:55→14:22)
[2020-04-13] MEDS ORDERED: INSULIN GLARGINE 100 UNIT/ML SUBCUT SCH (09:00)
[2020-04-13] MEDS: INSULIN LISPRO 100 UNIT/ML SUBCUT SCH ×4 (09:10→20:50)
[2020-04-13] MEDS: SERTRALINE 50 MG TABLET PO SCH (09:11)
[2020-04-13] MEDS: DULoxetine 30 MG CAPSULE PO SCH (09:11)
[2020-04-13] MEDS: POLYETHYLENE GLYCOL POWDER 17 GM PACK PO SCH (09:11)
[2020-04-13] MEDS: CARBIDOPA/LEVODOPA 10-100 MG TABLET PO SCH ×3 (09:11→20:49)
[2020-04-13] MEDS: PANTOPRAZOLE 40 MG VIAL IV SCH (09:11)
[2020-04-13] MEDS: MONTELUKAST 10 MG TABLET PO SCH (09:11)
[2020-04-13] MEDS: ASPIRIN EC 81 MG TABLET PO SCH (09:12)
[2020-04-13] MEDS: risperiDONE 1 MG TABLET PO SCH ×2 (09:12→20:49)
[2020-04-13] MEDS: SPIRONOLACTONE 100 MG TABLET PO SCH (09:12)
[2020-04-13] MEDS: CYANOCOBALAMIN 500 MCG TABLET PO SCH (09:12)
[2020-04-13] MEDS: CHOLECALCIFEROL 1,000 UNIT TABLET PO SCH (09:12)
[2020-04-13] MEDS: BUDESONIDE/FORMOTEROL 160-4.5 INHALER 6 GM INH SCH ×2 (09:13→21:21)
[2020-04-13] MEDS: FAT EMULSION 20% 250 ML IV SCH (13:39)
[2020-04-13] MEDS: TRACE ELEMENTS (5) 1 ML, MULTIVITAMIN INJ 10 ML in AMINO ACIDS/DEXT/LYTES 5-15% 2,000 ML IV SCH (16:24)
[2020-04-13] MEDS: INSULIN GLARGINE 100 UNIT/ML SUBCUT SCH (20:50)
[2020-04-14] MEDS: CIPROFLOXACIN INJ 200 MG in PREMIX 1 EACH IV SCH ×2 (01:22→13:54)
[2020-04-14] MEDS: HYDROmorphone 2 MG/1 ML VIAL IV PRN ×5 (02:32→18:26)
[2020-04-14 05:27] LABS: Basophils % 0.3 % (0.0-0.8); Eosinophils # 0.4 10*3/uL (0.0-0.87); Eosinophils % 3.2 % (0.00-10.9); Immature Granulocytes % 1.4 %; Immature Granulocytes Absolute 0.16 #; Lymphocytes # 2.5 10*3/uL (1.4-4.0); Lymphocytes % 20.9 % (21.3-54.2); Mean Corpuscular HGB Conc 32.1 GM/DL (32-36); Mean Corpuscular Volume 88.1 FL (87-102); Mean Platelet Volume 10.5 FL (9.6-12.0); Monocytes % 16.4 % (1.7-12.7); Neutrophils % 57.8 % (38.7-73.9); Platelet Count 178 T/CUMM (130-400); Red Blood Count 3.18 MC/CUMM (3.8-5.5); Red Cell Distribution Width 15.7 % (9.3-17.3); White Blood Count 11.8 T/CUMM (4-12)
[2020-04-14 05:46] LABS: Calcium 8.3 MG/DL (8.5-10.1); Osmolality,Calculated 283.1 MOS/KG (273-304)
[2020-04-14 05:56] LABS: Eosinophils 1 % (0-10); Lymphocytes 27 % (20-55); Segmented Neutrophils 58 % (50-85); Total Cells Counted 100
[2020-04-14 05:57] LABS: Atypical Lymphocytes Few; Hypochromasia 1+; Microcytosis 1+; Platelet Estimate Adequate
[2020-04-14] MEDS: LEVOTHYROXINE 88 MCG TABLET PO SCH (06:16)
[2020-04-14] MEDS: metroNIDAZOLE INJ 500 MG in PREMIX 1 EACH IV SCH ×3 (06:17→21:43)
[2020-04-14 08:50] LABS: % Iron Saturation 16.4 % (18-50); Ferritin 468.8 ng/ml (8-252)
[2020-04-14 09:17] LABS: Folate 3.6 NG/ML (5.4-24.0); Vitamin B12 > 2000 PG/ML (211-911)
[2020-04-14] MEDS: INSULIN GLARGINE 100 UNIT/ML SUBCUT SCH ×2 (10:10→21:19)
[2020-04-14] MEDS: INSULIN LISPRO 100 UNIT/ML SUBCUT SCH ×4 (10:11→21:18)
[2020-04-14] MEDS: ONDANSETRON 4 MG/2 ML VIAL IV PRN ×2 (10:32→17:24)
[2020-04-14] MEDS: PANTOPRAZOLE 40 MG VIAL IV SCH ×2 (10:35→21:20)
[2020-04-14] MEDS: CARBIDOPA/LEVODOPA 10-100 MG TABLET PO SCH ×3 (10:39→21:18)
[2020-04-14] MEDS: CYANOCOBALAMIN 500 MCG TABLET PO SCH (10:39)
[2020-04-14] MEDS: risperiDONE 1 MG TABLET PO SCH ×2 (10:39→21:18)
[2020-04-14] MEDS: POLYETHYLENE GLYCOL POWDER 17 GM PACK PO SCH (10:39)
[2020-04-14] MEDS: SPIRONOLACTONE 100 MG TABLET PO SCH (10:40)
[2020-04-14] MEDS: DULoxetine 30 MG CAPSULE PO SCH (10:40)
[2020-04-14] MEDS: SERTRALINE 50 MG TABLET PO SCH (10:40)
[2020-04-14] MEDS: CHOLECALCIFEROL 1,000 UNIT TABLET PO SCH (10:40)
[2020-04-14] MEDS: MONTELUKAST 10 MG TABLET PO SCH (10:40)
[2020-04-14] MEDS: BUDESONIDE/FORMOTEROL 160-4.5 INHALER 6 GM INH SCH ×2 (10:41→21:43)
[2020-04-14] MEDS: TRACE ELEMENTS (5) 1 ML, MULTIVITAMIN INJ 10 ML in AMINO ACIDS/DEXT/LYTES 5-15% 2,000 ML IV SCH (17:49)
[2020-04-14] MEDS: FAT EMULSION 20% 250 ML IV SCH (17:51)
[2020-04-15] MEDS: CIPROFLOXACIN INJ 200 MG in PREMIX 1 EACH IV SCH ×2 (01:00→13:10)
[2020-04-15 05:20] LABS: Basophils % 0.2 % (0.0-0.8); Eosinophils # 0.5 10*3/uL (0.0-0.87); Eosinophils % 3.9 % (0.00-10.9); Hemoglobin 8.8 GM/DL (12.0-16.0); Immature Granulocytes % 1.9 %; Immature Granulocytes Absolute 0.24 #; Lymphocytes # 2.4 10*3/uL (1.4-4.0); Lymphocytes % 19.5 % (21.3-54.2); Mean Corpuscular HGB Conc 31.4 GM/DL (32-36); Mean Corpuscular Volume 88.9 FL (87-102); Mean Platelet Volume 10.3 FL (9.6-12.0); Monocytes % 14.1 % (1.7-12.7); Neutrophils % 60.4 % (38.7-73.9); Platelet Count 179 T/CUMM (130-400); Red Blood Count 3.15 MC/CUMM (3.8-5.5); Red Cell Distribution Width 15.6 % (9.3-17.3); White Blood Count 12.4 T/CUMM (4-12)
[2020-04-15] MEDS: metroNIDAZOLE INJ 500 MG in PREMIX 1 EACH IV SCH ×3 (05:59→21:41)
[2020-04-15] MEDS: LEVOTHYROXINE 88 MCG TABLET PO SCH ×2 (05:59→06:20)
[2020-04-15] MEDS: DULoxetine 30 MG CAPSULE PO SCH (08:58)
[2020-04-15] MEDS: risperiDONE 1 MG TABLET PO SCH ×2 (08:58→21:43)
[2020-04-15] MEDS: CYANOCOBALAMIN 500 MCG TABLET PO SCH (09:00)
[2020-04-15] MEDS: FOLIC ACID 1 MG TABLET NG SCH (09:00)
[2020-04-15] MEDS: MONTELUKAST 10 MG TABLET PO SCH (09:01)
[2020-04-15] MEDS: CARBIDOPA/LEVODOPA 10-100 MG TABLET PO SCH ×3 (09:01→21:43)
[2020-04-15] MEDS: POLYETHYLENE GLYCOL POWDER 17 GM PACK PO SCH (09:01)
[2020-04-15] MEDS: SERTRALINE 50 MG TABLET PO SCH (09:01)
[2020-04-15] MEDS: CHOLECALCIFEROL 1,000 UNIT TABLET PO SCH (09:01)
[2020-04-15] MEDS: BUDESONIDE/FORMOTEROL 160-4.5 INHALER 6 GM INH SCH ×2 (09:01→22:02)
[2020-04-15] MEDS: HYDROmorphone 2 MG/1 ML VIAL IV PRN ×4 (09:02→21:42)
[2020-04-15] MEDS: PANTOPRAZOLE 40 MG VIAL IV SCH ×2 (09:02→21:42)
[2020-04-15] MEDS: INSULIN LISPRO 100 UNIT/ML SUBCUT SCH ×4 (09:03→22:03)
[2020-04-15] MEDS: FERRIC GLUCONATE COMPLEX 125 MG in SODIUM CHLORIDE 0.9% 100 ML IV SCH (09:03)
[2020-04-15] MEDS: SPIRONOLACTONE 100 MG TABLET PO SCH (09:03)
[2020-04-15] MEDS: INSULIN GLARGINE 100 UNIT/ML SUBCUT SCH (09:04)
[2020-04-15] MEDS ORDERED: INSULIN GLARGINE 100 UNIT/ML SUBCUT SCH ×2 (11:49)
[2020-04-15] MEDS: TRACE ELEMENTS (5) 1 ML, MULTIVITAMIN INJ 10 ML in AMINO ACIDS/DEXT/LYTES 5-15% 2,000 ML IV SCH (17:02)
[2020-04-15] MEDS: FAT EMULSION 20% 250 ML IV SCH (17:03)
[2020-04-16] MEDS: HYDROmorphone 2 MG/1 ML VIAL IV PRN ×5 (02:15→22:24)
[2020-04-16] MEDS: CIPROFLOXACIN INJ 200 MG in PREMIX 1 EACH IV SCH (02:15)
[2020-04-16 05:25] LABS: Basophils # 0.1 10*3/uL (0.0-0.2); Basophils % 0.3 % (0.0-0.8); Eosinophils # 0.5 10*3/uL (0.0-0.87); Eosinophils % 3.5 % (0.00-10.9); Hematocrit 27.5 VOL% (35.7-47.0); Hemoglobin 8.8 GM/DL (12.0-16.0); Immature Granulocytes % 3.2 %; Immature Granulocytes Absolute 0.47 #; Lymphocytes # 2.8 10*3/uL (1.4-4.0); Lymphocytes % 18.9 % (21.3-54.2); Mean Corpuscular Volume 88.1 FL (87-102); Monocytes % 13.1 % (1.7-12.7); NRBC # 0.02 10*3/uL; Platelet Count 201 T/CUMM (130-400); Red Blood Count 3.12 MC/CUMM (3.8-5.5); Red Cell Distribution Width 15.5 % (9.3-17.3); White Blood Count 14.7 T/CUMM (4-12)
[2020-04-16 05:53] LABS: Atypical Lymphocytes Few; Band Neutrophils 1 % (0-10); Eosinophils 5 % (0-10); Lymphocytes 18 % (20-55); Metamyelocytes 1 %; Segmented Neutrophils 66 % (50-85); Total Cells Counted 100
[2020-04-16 05:54] LABS: Hypochromasia 1+; Microcytosis 1+; Target Cells Slight
[2020-04-16 05:55] LABS: Platelet Estimate Normal
[2020-04-16 06:01] LABS: Albumin 1.9 G/DL (3.4-5.0); Bilirubin,Total 0.5 MG/DL (0.2-1.0); Calcium 8.6 MG/DL (8.5-10.1); Total Protein 6.7 G/DL (6.4-8.3)
[2020-04-16] MEDS: metroNIDAZOLE INJ 500 MG in PREMIX 1 EACH IV SCH ×3 (06:06→23:24)
[2020-04-16] MEDS: LEVOTHYROXINE 88 MCG TABLET PO SCH (06:37)
[2020-04-16] MEDS ORDERED: MAGNESIUM SULF RIDER 4 GM in PREMIX 1 EACH IV PRN (08:30)
[2020-04-16] MEDS ORDERED: INSULIN GLARGINE 100 UNIT/ML SUBCUT SCH ×2 (08:30)
[2020-04-16] MEDS ORDERED: MAGNESIUM SULF RIDER 2 GM in PREMIX 1 EACH IV PRN (08:30)
[2020-04-16] MEDS: INSULIN LISPRO 100 UNIT/ML SUBCUT SCH ×4 (09:47→22:25)
[2020-04-16] MEDS: CIPROFLOXACIN INJ 400 MG in PREMIX 1 EACH IV SCH ×2 (09:48→22:24)
[2020-04-16] MEDS: CARBIDOPA/LEVODOPA 10-100 MG TABLET PO SCH ×3 (09:49→22:25)
[2020-04-16] MEDS: PANTOPRAZOLE 40 MG VIAL IV SCH ×2 (09:49→22:24)
[2020-04-16] MEDS: CYANOCOBALAMIN 500 MCG TABLET PO SCH (09:50)
[2020-04-16] MEDS: FOLIC ACID 1 MG TABLET NG SCH (09:50)
[2020-04-16] MEDS: CHOLECALCIFEROL 1,000 UNIT TABLET PO SCH (09:50)
[2020-04-16] MEDS: DULoxetine 30 MG CAPSULE PO SCH (09:50)
[2020-04-16] MEDS: MONTELUKAST 10 MG TABLET PO SCH (09:50)
[2020-04-16] MEDS: SERTRALINE 50 MG TABLET PO SCH (09:50)
[2020-04-16] MEDS: SPIRONOLACTONE 100 MG TABLET PO SCH (09:50)
[2020-04-16] MEDS: risperiDONE 1 MG TABLET PO SCH ×2 (09:51→22:25)
[2020-04-16] MEDS: BUDESONIDE/FORMOTEROL 160-4.5 INHALER 6 GM INH SCH ×2 (09:52→22:25)
[2020-04-16] MEDS: POLYETHYLENE GLYCOL POWDER 17 GM PACK PO SCH (10:49)
[2020-04-16] MEDS: FERRIC GLUCONATE COMPLEX 125 MG in SODIUM CHLORIDE 0.9% 100 ML IV SCH (10:49)
[2020-04-16] MEDS: FAT EMULSION 20% 250 ML IV SCH (14:29)
[2020-04-16] MEDS: TRACE ELEMENTS (5) 1 ML, MULTIVITAMIN INJ 10 ML in AMINO ACIDS/DEXT/LYTES 5-15% 2,000 ML IV SCH (16:19)
[2020-04-17] MEDS: HYDROmorphone 2 MG/1 ML VIAL IV PRN ×4 (04:26→19:53)
[2020-04-17 05:54] LABS: Basophils # 0.1 10*3/uL (0.0-0.2); Basophils % 0.4 % (0.0-0.8); Eosinophils # 0.7 10*3/uL (0.0-0.87); Eosinophils % 4.7 % (0.00-10.9); Hematocrit 28.9 VOL% (35.7-47.0); Hemoglobin 9.3 GM/DL (12.0-16.0); Immature Granulocytes Absolute 0.69 #; Lymphocytes # 2.4 10*3/uL (1.4-4.0); Lymphocytes % 17.2 % (21.3-54.2); Mean Corpuscular HGB Conc 32.2 GM/DL (32-36); Mean Corpuscular Volume 87.3 FL (87-102); Monocytes % 12.4 % (1.7-12.7); NRBC # 0.04 10*3/uL; Neutrophils % 60.3 % (38.7-73.9); Platelet Count 226 T/CUMM (130-400); Red Blood Count 3.31 MC/CUMM (3.8-5.5); Red Cell Distribution Width 15.3 % (9.3-17.3); White Blood Count 13.9 T/CUMM (4-12)
[2020-04-17 06:18] LABS: Calcium 8.8 MG/DL (8.5-10.1); Osmolality,Calculated 278.2 MOS/KG (273-304)
[2020-04-17 06:40] LABS: Band Neutrophils 1 % (0-10); Eosinophils 5 % (0-10); Lymphocytes 12 % (20-55); Metamyelocytes 1 %; Myelocytes 1 %; Segmented Neutrophils 66 % (50-85); Total Cells Counted 100
[2020-04-17] MEDS: metroNIDAZOLE INJ 500 MG in PREMIX 1 EACH IV SCH ×3 (06:40→22:28)
[2020-04-17 06:41] LABS: Hypochromasia 1+; Microcytosis 1+; Platelet Estimate Normal
[2020-04-17] MEDS: LEVOTHYROXINE 88 MCG TABLET PO SCH (06:44)
[2020-04-17] MEDS: CIPROFLOXACIN INJ 400 MG in PREMIX 1 EACH IV SCH ×2 (09:11→21:13)
[2020-04-17] MEDS: PANTOPRAZOLE 40 MG VIAL IV SCH ×2 (09:16→21:17)
[2020-04-17] MEDS: risperiDONE 1 MG TABLET PO SCH ×2 (09:17→21:11)
[2020-04-17] MEDS: CHOLECALCIFEROL 1,000 UNIT TABLET PO SCH (09:17)
[2020-04-17] MEDS: MONTELUKAST 10 MG TABLET PO SCH (09:17)
[2020-04-17] MEDS: SERTRALINE 50 MG TABLET PO SCH (09:17)
[2020-04-17] MEDS: POLYETHYLENE GLYCOL POWDER 17 GM PACK PO SCH (09:17)
[2020-04-17] MEDS: SPIRONOLACTONE 100 MG TABLET PO SCH (09:17)
[2020-04-17] MEDS: DULoxetine 30 MG CAPSULE PO SCH (09:17)
[2020-04-17] MEDS: CARBIDOPA/LEVODOPA 10-100 MG TABLET PO SCH ×3 (09:18→21:11)
[2020-04-17] MEDS: CYANOCOBALAMIN 500 MCG TABLET PO SCH (09:18)
[2020-04-17] MEDS: FOLIC ACID 1 MG TABLET NG SCH (09:18)
[2020-04-17] MEDS: BUDESONIDE/FORMOTEROL 160-4.5 INHALER 6 GM INH SCH ×2 (09:19→21:11)
[2020-04-17] MEDS: INSULIN LISPRO 100 UNIT/ML SUBCUT SCH ×4 (09:52→21:12)
[2020-04-17] MEDS: INSULIN GLARGINE 100 UNIT/ML SUBCUT SCH ×2 (09:52→21:13)
[2020-04-17] MEDS: FERRIC GLUCONATE COMPLEX 125 MG in SODIUM CHLORIDE 0.9% 100 ML IV SCH (09:53)
[2020-04-17] MEDS: FAT EMULSION 20% 250 ML IV SCH (13:55)
[2020-04-17] MEDS: TRACE ELEMENTS (5) 1 ML, MULTIVITAMIN INJ 10 ML in AMINO ACIDS/DEXT/LYTES 5-15% 2,000 ML IV SCH (16:24)
[2020-04-18] MEDS: HYDROmorphone 2 MG/1 ML VIAL IV PRN ×5 (00:33→22:10)
[2020-04-18 03:47] LABS: Basophils # 0.1 10*3/uL (0.0-0.2); Basophils % 0.5 % (0.0-0.8); Eosinophils # 0.9 10*3/uL (0.0-0.87); Eosinophils % 6.6 % (0.00-10.9); Hematocrit 28.5 VOL% (35.7-47.0); Immature Granulocytes % 4.9 %; Immature Granulocytes Absolute 0.69 #; Lymphocytes # 2.3 10*3/uL (1.4-4.0); Lymphocytes % 16.7 % (21.3-54.2); Mean Corpuscular HGB Conc 31.6 GM/DL (32-36); Mean Corpuscular Volume 88.2 FL (87-102); Mean Platelet Volume 9.9 FL (9.6-12.0); Monocytes % 13.8 % (1.7-12.7); NRBC # 0.02 10*3/uL; Neutrophils % 57.5 % (38.7-73.9); Platelet Count 219 T/CUMM (130-400); Red Blood Count 3.23 MC/CUMM (3.8-5.5); Red Cell Distribution Width 15.4 % (9.3-17.3)
[2020-04-18 04:03] LABS: Calcium 8.7 MG/DL (8.5-10.1); Osmolality,Calculated 279.2 MOS/KG (273-304)
[2020-04-18 04:45] LABS: Band Neutrophils 2 % (0-10); Eosinophils 5 % (0-10); Hypochromasia 2+; Lymphocytes 10 % (20-55); Platelet Estimate Adequate; Segmented Neutrophils 71 % (50-85); Total Cells Counted 100
[2020-04-18 04:46] LABS: Microcytosis 1+
[2020-04-18] MEDS: metroNIDAZOLE INJ 500 MG in PREMIX 1 EACH IV SCH ×2 (05:39→14:38)
[2020-04-18] MEDS: LEVOTHYROXINE 88 MCG TABLET PO SCH (06:00)
[2020-04-18] MEDS: CIPROFLOXACIN INJ 400 MG in PREMIX 1 EACH IV SCH ×2 (09:00→22:07)
[2020-04-18] MEDS: PANTOPRAZOLE 40 MG VIAL IV SCH ×2 (09:03→22:10)
[2020-04-18] MEDS: CARBIDOPA/LEVODOPA 10-100 MG TABLET PO SCH ×3 (09:09→22:08)
[2020-04-18] MEDS: risperiDONE 1 MG TABLET PO SCH ×2 (09:09→22:08)
[2020-04-18] MEDS: SERTRALINE 50 MG TABLET PO SCH (09:10)
[2020-04-18] MEDS: CYANOCOBALAMIN 500 MCG TABLET PO SCH (09:10)
[2020-04-18] MEDS: MONTELUKAST 10 MG TABLET PO SCH (09:10)
[2020-04-18] MEDS: FOLIC ACID 1 MG TABLET NG SCH (09:10)
[2020-04-18] MEDS: SPIRONOLACTONE 100 MG TABLET PO SCH (09:10)
[2020-04-18] MEDS: DULoxetine 30 MG CAPSULE PO SCH (09:10)
[2020-04-18] MEDS: BUDESONIDE/FORMOTEROL 160-4.5 INHALER 6 GM INH SCH ×2 (09:11→22:29)
[2020-04-18] MEDS: POLYETHYLENE GLYCOL POWDER 17 GM PACK PO SCH (09:12)
[2020-04-18] MEDS: CHOLECALCIFEROL 1,000 UNIT TABLET PO SCH (09:12)
[2020-04-18] MEDS: INSULIN GLARGINE 100 UNIT/ML SUBCUT SCH ×2 (09:16→22:09)
[2020-04-18] MEDS: INSULIN LISPRO 100 UNIT/ML SUBCUT SCH ×4 (09:35→22:09)
[2020-04-18] MEDS: FERRIC GLUCONATE COMPLEX 125 MG in SODIUM CHLORIDE 0.9% 100 ML IV SCH (09:36)
[2020-04-18] MEDS: ONDANSETRON 4 MG/2 ML VIAL IV PRN ×2 (12:44→17:09)
[2020-04-18] MEDS: NYSTATIN POWDER 15 GM BOTTLE TOP SCH ×2 (14:41→22:30)
[2020-04-18] MEDS: FAT EMULSION 20% 250 ML IV SCH (14:41)
[2020-04-18] MEDS: TRACE ELEMENTS (5) 1 ML, MULTIVITAMIN INJ 10 ML, INSULIN REGULAR 30 UNIT in AMINO ACIDS... IV SCH (17:51)
[2020-04-18] MEDS: TRACE ELEMENTS (5) 1 ML, MULTIVITAMIN INJ 10 ML in AMINO ACIDS/DEXT/LYTES 5-15% 2,000 ML IV SCH (18:07)
[2020-04-19] MEDS: metroNIDAZOLE INJ 500 MG in PREMIX 1 EACH IV SCH ×3 (00:52→14:19)
[2020-04-19] MEDS ORDERED: ALUMINUM/MAGNES/SIMETH MAX STR 30 ML UDCUP PO PRN (03:29)
[2020-04-19] MEDS: HYDROmorphone 2 MG/1 ML VIAL IV PRN ×3 (04:49→20:11)
[2020-04-19] MEDS: LEVOTHYROXINE 88 MCG TABLET PO SCH (06:41)
[2020-04-19 06:49] LABS: Basophils % 0.3 % (0.0-0.8); Eosinophils # 0.5 10*3/uL (0.0-0.87); Eosinophils % 3.8 % (0.00-10.9); Hematocrit 29.9 VOL% (35.7-47.0); Hemoglobin 9.4 GM/DL (12.0-16.0); Immature Granulocytes % 2.8 %; Immature Granulocytes Absolute 0.36 #; Lymphocytes # 2.4 10*3/uL (1.4-4.0); Lymphocytes % 18.7 % (21.3-54.2); Mean Corpuscular HGB Conc 31.4 GM/DL (32-36); Monocytes % 14.3 % (1.7-12.7); Neutrophils % 60.1 % (38.7-73.9); Platelet Count 228 T/CUMM (130-400); Red Blood Count 3.36 MC/CUMM (3.8-5.5); Red Cell Distribution Width 15.5 % (9.3-17.3)
[2020-04-19 07:35] LABS: Calcium 8.7 MG/DL (8.5-10.1); Osmolality,Calculated 278.2 MOS/KG (273-304)
[2020-04-19] MEDS: POLYETHYLENE GLYCOL POWDER 17 GM PACK PO SCH (09:27)
[2020-04-19] MEDS: SPIRONOLACTONE 100 MG TABLET PO SCH (09:27)
[2020-04-19] MEDS: MONTELUKAST 10 MG TABLET PO SCH (09:27)
[2020-04-19] MEDS: risperiDONE 1 MG TABLET PO SCH ×2 (09:28→21:57)
[2020-04-19] MEDS: CARBIDOPA/LEVODOPA 10-100 MG TABLET PO SCH ×3 (09:28→21:57)
[2020-04-19] MEDS: CHOLECALCIFEROL 1,000 UNIT TABLET PO SCH (09:28)
[2020-04-19] MEDS: PANTOPRAZOLE 40 MG VIAL IV SCH ×2 (09:28→21:59)
[2020-04-19] MEDS: CYANOCOBALAMIN 500 MCG TABLET PO SCH (09:28)
[2020-04-19] MEDS: SERTRALINE 50 MG TABLET PO SCH (09:28)
[2020-04-19] MEDS: DULoxetine 30 MG CAPSULE PO SCH (09:28)
[2020-04-19] MEDS: FOLIC ACID 1 MG TABLET NG SCH (09:28)
[2020-04-19] MEDS: INSULIN LISPRO 100 UNIT/ML SUBCUT SCH ×4 (09:29→22:00)
[2020-04-19] MEDS: INSULIN GLARGINE 100 UNIT/ML SUBCUT SCH ×2 (09:29→21:59)
[2020-04-19] MEDS: CIPROFLOXACIN INJ 400 MG in PREMIX 1 EACH IV SCH ×2 (09:30→21:58)
[2020-04-19] MEDS: BUDESONIDE/FORMOTEROL 160-4.5 INHALER 6 GM INH SCH ×2 (09:31→21:59)
[2020-04-19] MEDS: NYSTATIN POWDER 15 GM BOTTLE TOP SCH ×2 (09:31→21:59)
[2020-04-19] MEDS: FERRIC GLUCONATE COMPLEX 125 MG in SODIUM CHLORIDE 0.9% 100 ML IV SCH (10:56)
[2020-04-19] MEDS: FAT EMULSION 20% 250 ML IV SCH (14:19)
[2020-04-19] MEDS: TRACE ELEMENTS (5) 1 ML, MULTIVITAMIN INJ 10 ML, INSULIN REGULAR 30 UNIT in AMINO ACIDS... IV SCH (20:41)
[2020-04-20] MEDS: metroNIDAZOLE INJ 500 MG in PREMIX 1 EACH IV SCH (01:30)
[2020-04-20] MEDS: HYDROmorphone 2 MG/1 ML VIAL IV PRN ×4 (04:43→21:54)
[2020-04-20] MEDS: LEVOTHYROXINE 88 MCG TABLET PO SCH (06:11)
[2020-04-20 06:30] LABS: Calcium 8.7 MG/DL (8.5-10.1); Osmolality,Calculated 278.2 MOS/KG (273-304)
[2020-04-20 06:38] LABS: Basophils % 0.2 % (0.0-0.8); Eosinophils # 0.3 10*3/uL (0.0-0.87); Eosinophils % 2.5 % (0.00-10.9); Hematocrit 28.6 VOL% (35.7-47.0); Immature Granulocytes % 2.2 %; Immature Granulocytes Absolute 0.27 #; Lymphocytes # 2.5 10*3/uL (1.4-4.0); Lymphocytes % 20.1 % (21.3-54.2); Mean Corpuscular HGB Conc 31.5 GM/DL (32-36); Mean Corpuscular Volume 89.7 FL (87-102); Mean Platelet Volume 10.1 FL (9.6-12.0); Monocytes % 14.4 % (1.7-12.7); Neutrophils % 60.6 % (38.7-73.9); Platelet Count 217 T/CUMM (130-400); Red Blood Count 3.19 MC/CUMM (3.8-5.5); Red Cell Distribution Width 15.5 % (9.3-17.3); White Blood Count 12.5 T/CUMM (4-12)
[2020-04-20] MEDS: CIPROFLOXACIN INJ 400 MG in PREMIX 1 EACH IV SCH ×2 (08:45→21:44)
[2020-04-20] MEDS: PANTOPRAZOLE 40 MG VIAL IV SCH ×2 (08:51→21:43)
[2020-04-20] MEDS: SERTRALINE 50 MG TABLET PO SCH (08:52)
[2020-04-20] MEDS: CHOLECALCIFEROL 1,000 UNIT TABLET PO SCH (08:52)
[2020-04-20] MEDS: POLYETHYLENE GLYCOL POWDER 17 GM PACK PO SCH (08:52)
[2020-04-20] MEDS: CARBIDOPA/LEVODOPA 10-100 MG TABLET PO SCH ×3 (08:52→21:43)
[2020-04-20] MEDS: DULoxetine 30 MG CAPSULE PO SCH (08:52)
[2020-04-20] MEDS: risperiDONE 1 MG TABLET PO SCH ×2 (08:52→21:43)
[2020-04-20] MEDS: FOLIC ACID 1 MG TABLET NG SCH (08:53)
[2020-04-20] MEDS: MONTELUKAST 10 MG TABLET PO SCH (08:53)
[2020-04-20] MEDS: SPIRONOLACTONE 100 MG TABLET PO SCH (08:53)
[2020-04-20] MEDS: FERRIC GLUCONATE COMPLEX 125 MG in SODIUM CHLORIDE 0.9% 100 ML IV SCH (08:53)
[2020-04-20] MEDS: BUDESONIDE/FORMOTEROL 160-4.5 INHALER 6 GM INH SCH ×2 (08:54→21:43)
[2020-04-20] MEDS: NYSTATIN POWDER 15 GM BOTTLE TOP SCH ×2 (08:54→21:43)
[2020-04-20] MEDS: INSULIN LISPRO 100 UNIT/ML SUBCUT SCH ×4 (09:31→21:34)
[2020-04-20] MEDS: INSULIN GLARGINE 100 UNIT/ML SUBCUT SCH ×2 (09:31→21:36)
[2020-04-20] MEDS ORDERED: GLUCAGON 1 MG VIAL IM PRN (10:55)
[2020-04-20] MEDS ORDERED: DEXTROSE 50% 25 GM/50 ML VIAL IV PRN (10:55)
[2020-04-20] MEDS: CYANOCOBALAMIN 500 MCG TABLET PO SCH (13:07)
[2020-04-20] MEDS: TRACE ELEMENTS (5) 1 ML, MULTIVITAMIN INJ 10 ML, INSULIN REGULAR 30 UNIT in AMINO ACIDS... IV SCH (17:29)
[2020-04-20] MEDS: FAT EMULSION 20% 250 ML IV SCH (17:54)
[2020-04-21] MEDS: HYDROmorphone 2 MG/1 ML VIAL IV PRN ×2 (02:34→08:50)
[2020-04-21 05:37] LABS: Basophils % 0.2 % (0.0-0.8); Eosinophils # 0.4 10*3/uL (0.0-0.87); Eosinophils % 2.9 % (0.00-10.9); Hemoglobin 8.6 GM/DL (12.0-16.0); Immature Granulocytes % 1.2 %; Immature Granulocytes Absolute 0.15 #; Lymphocytes # 2.5 10*3/uL (1.4-4.0); Lymphocytes % 19.6 % (21.3-54.2); Mean Corpuscular HGB Conc 30.7 GM/DL (32-36); Mean Corpuscular Volume 90.6 FL (87-102); Mean Platelet Volume 9.9 FL (9.6-12.0); Monocytes % 13.8 % (1.7-12.7); Neutrophils % 62.3 % (38.7-73.9); Platelet Count 222 T/CUMM (130-400); Red Blood Count 3.09 MC/CUMM (3.8-5.5); Red Cell Distribution Width 15.9 % (9.3-17.3); White Blood Count 12.9 T/CUMM (4-12)
[2020-04-21 05:58] LABS: Calcium 8.5 MG/DL (8.5-10.1)
[2020-04-21] MEDS: CIPROFLOXACIN INJ 400 MG in PREMIX 1 EACH IV SCH (08:17)
[2020-04-21] MEDS: risperiDONE 1 MG TABLET PO SCH (08:21)
[2020-04-21] MEDS: CARBIDOPA/LEVODOPA 10-100 MG TABLET PO SCH (08:21)
[2020-04-21] MEDS: DULoxetine 30 MG CAPSULE PO SCH (08:22)
[2020-04-21] MEDS: MONTELUKAST 10 MG TABLET PO SCH (08:22)
[2020-04-21] MEDS: LEVOTHYROXINE 88 MCG TABLET PO SCH (08:22)
[2020-04-21] MEDS: FOLIC ACID 1 MG TABLET NG SCH (08:22)
[2020-04-21] MEDS: CHOLECALCIFEROL 1,000 UNIT TABLET PO SCH (08:22)
[2020-04-21] MEDS: CYANOCOBALAMIN 500 MCG TABLET PO SCH (08:22)
[2020-04-21] MEDS: SPIRONOLACTONE 100 MG TABLET PO SCH (08:22)
[2020-04-21] MEDS: SERTRALINE 50 MG TABLET PO SCH (08:22)
[2020-04-21] MEDS: POLYETHYLENE GLYCOL POWDER 17 GM PACK PO SCH (08:23)
[2020-04-21] MEDS: PANTOPRAZOLE 40 MG VIAL IV SCH (08:23)
[2020-04-21] MEDS: NYSTATIN POWDER 15 GM BOTTLE TOP SCH (08:24)
[2020-04-21] MEDS: INSULIN LISPRO 100 UNIT/ML SUBCUT SCH ×2 (08:24→13:01)
[2020-04-21] MEDS: BUDESONIDE/FORMOTEROL 160-4.5 INHALER 6 GM INH SCH (08:25)
[2020-04-21] MEDS: INSULIN GLARGINE 100 UNIT/ML SUBCUT SCH (10:39)
[2020-04-21] MEDS: FERRIC GLUCONATE COMPLEX 125 MG in SODIUM CHLORIDE 0.9% 100 ML IV SCH (11:03)
[2020-04-21] MEDS ORDERED: INSULIN GLARGINE 100 UNIT/ML SUBCUT SCH (12:00)
[2020-04-21 12:23] VITALS: BP 104/52
== END 2020-04-21 15:50 | disposition home health service (06) | DRG 389 ==
LOC: EDUNIT# → EDBD → N.ED 10:48 → N.EDINP 14:56 → SUATTDRO 14:56 → N.4E 18:00
PROVIDERS: ADMIT Internal Medicine; ATTEND Internal Medicine

== ENCOUNTER 2021-01-05 10:44 | Inpatient (IN) ==
[2021-01-05] MEDS ORDERED: SODIUM CHLORIDE 0.9% 1,000 ML IV STA (11:21)
[2021-01-05] MEDS ORDERED: cefTRIAXone 1,000 MG in SODIUM CHLORIDE 0.9% 100 ML IV STA (11:22)
[2021-01-05 12:05] LABS: Amorphous Crystals,Urine Few /HPF (Few); Bacteria,Urine Occasional /HPF (Few); Basophils % 0.1 % (0.0-0.8); Bilirubin,Urine Negative (Negative); Blood, Urine Negative (Negative); Glucose,Urine (UA) Negative (Negative); Hematocrit 31.3 VOL% (35.7-47.0); Hemoglobin 10.2 GM/DL (12.0-16.0); Hyaline Casts,Urine 10 /LPF (0-3); Immature Granulocytes % 0.6 %; Immature Granulocytes Absolute 0.06 #; Ketones,Urine Negative (Negative); Lymphocytes # 0.7 10*3/uL (1.4-4.0); Lymphocytes % 6.8 % (21.3-54.2); Mean Corpuscular HGB Conc 32.6 GM/DL (32-36); Mean Corpuscular Volume 87.2 FL (87-102); Mean Platelet Volume 10.8 FL (9.6-12.0); Monocytes % 16.9 % (1.7-12.7); Mucus,Urine Occasional /LPF (Occasional); Neutrophils % 75.6 % (38.7-73.9); Nitrite,Urine Negative (Negative); Platelet Count 201 T/CUMM (130-400); Protein,Urine Negative; RBC,Urine <1 /HPF (0-4); Red Blood Count 3.59 MC/CUMM (3.8-5.5); Red Cell Distribution Width 15.3 % (9.3-17.3); Squamous Epithelial Cell,Urine Few /HPF (0-10); Urine Appearance Slightly Hazy (Clear); Urine Color Yellow (Yellow); Urine Specific Gravity 1.016 (1.001-1.035); White Blood Count 10.8 T/CUMM (4-12)
[2021-01-05 12:10] LABS: Barbiturates Screen,Urine Negative (Negative); Benzodiazepines Screen,Urine Negative (Negative); Cannabinoid Screen,Urine Negative (Negative); Opiate Screen,Urine Positive (Negative); Phencyclidine Screen,Urine Negative (Negative)
[2021-01-05 12:24] LABS: INR 1.1; PT Patient Result 11.9 SECS (10.5-12.0); Partial Thromboplastin Time 23.7 SECS (23.9-33.8)
[2021-01-05 12:26] LABS: Albumin 2.7 G/DL (3.4-5.0); Bilirubin,Total 0.5 MG/DL (0.20-1.00); Calcium 8.5 MG/DL (8.5-10.1); Osmolality,Calculated 300.4 MOS/KG (273-304); Potassium 3.5 MMOL/L (3.5-5.1); Total Protein 8.2 G/DL (6.4-8.2)
[2021-01-05 12:31] LABS: Ferritin 439.9 ng/ml (8-252)
[2021-01-05 12:39] LABS: Anisocytosis 1+; Band Neutrophils 2 % (0-10); Eosinophils 6 % (0-10); Lymphocytes 6 % (20-55); Macrocytosis Slight; Platelet Estimate Normal; Segmented Neutrophils 70 % (50-85); Total Cells Counted 100
[2021-01-05] MEDS ORDERED: NALOXONE 0.4 MG/ML VIAL IV STA (13:21)
[2021-01-05] MEDS ORDERED: GLUCAGON 1 MG VIAL IM PRN (16:10)
[2021-01-05] MEDS ORDERED: ONDANSETRON 4 MG/2 ML VIAL IV PRN (16:10)
[2021-01-05] MEDS ORDERED: DEXTROSE 50% 25 GM/50 ML VIAL IV PRN (16:10)
[2021-01-05] MEDS ORDERED: HEPARIN 5,000 UNIT/1 ML VIAL SUBCUT SCH (16:30)
[2021-01-05 16:36] LABS: Folate 7.98 NG/ML (5.38-24.0); Vitamin B12 > 2000 PG/ML (211-911)
[2021-01-05] MEDS: SODIUM CHLORIDE 0.9% 1,000 ML IV SCH (16:40)
[2021-01-05] MEDS: LACTULOSE 320 GM/480 ML BOTTLE RECTAL SCH (22:20)
[2021-01-06 00:50] LABS: Ferritin 484.2 ng/ml (8-252); Risk Ratio 3.41
[2021-01-06 00:58] LABS: Basophils % 0.2 % (0.0-0.8); Eosinophils % 0.3 % (0.00-10.9); Hematocrit 29.1 VOL% (35.7-47.0); Hemoglobin 9.7 GM/DL (12.0-16.0); Immature Granulocytes % 0.7 %; Immature Granulocytes Absolute 0.08 #; Lymphocytes # 1.6 10*3/uL (1.4-4.0); Lymphocytes % 14.8 % (21.3-54.2); Mean Corpuscular HGB Conc 33.3 GM/DL (32-36); Mean Corpuscular Volume 86.9 FL (87-102); Monocytes % 25.1 % (1.7-12.7); Neutrophils % 58.9 % (38.7-73.9); Platelet Count 191 T/CUMM (130-400); Red Blood Count 3.35 MC/CUMM (3.8-5.5); Red Cell Distribution Width 15.4 % (9.3-17.3); White Blood Count 10.8 T/CUMM (4-12)
[2021-01-06 01:19] LABS: Eosinophils 2 % (0-10); Lymphocytes 10 % (20-55); Platelet Estimate Normal; Segmented Neutrophils 65 % (50-85); Total Cells Counted 100
[2021-01-06 01:20] LABS: Hypochromasia Slight
[2021-01-06] MEDS: SODIUM CHLORIDE 0.9% 1,000 ML IV SCH ×3 (03:51→21:05)
[2021-01-06] MEDS: HEPARIN 5,000 UNIT/1 ML VIAL SUBCUT SCH ×2 (09:40→20:53)
[2021-01-06] MEDS: LACTULOSE 320 GM/480 ML BOTTLE RECTAL SCH (11:00)
[2021-01-06 13:34] LABS: Calcium 7.8 MG/DL (8.5-10.1); Osmolality,Calculated 308.1 MOS/KG (273-304); Potassium 3.6 MMOL/L (3.5-5.1)
[2021-01-06] MEDS: IVERMECTIN 3 MG TABLET PO SCH (14:02)
[2021-01-06] MEDS ORDERED: ACETAMINOPHEN 160 MG/5 ML UDCUP PO ONE (20:05)
[2021-01-06] MEDS ORDERED: LACTULOSE 320 GM/480 ML BOTTLE PO SCH (21:00)
[2021-01-06] MEDS: LACTULOSE 20 GM/30 ML UDCUP PO SCH (21:00)
[2021-01-06] MEDS: DEXAMETHASONE 4 MG TABLET PO SCH (21:00)
[2021-01-06] MEDS: INSULIN LISPRO 100 UNIT/ML SUBCUT SCH (22:42)
[2021-01-07 04:07] LABS: Hematocrit 30.4 VOL% (35.7-47.0); Hemoglobin 9.9 GM/DL (12.0-16.0); Immature Granulocytes % 0.6 %; Immature Granulocytes Absolute 0.05 #; Lymphocytes % 11.1 % (21.3-54.2); Mean Corpuscular HGB Conc 32.6 GM/DL (32-36); Mean Corpuscular Volume 87.9 FL (87-102); Mean Platelet Volume 10.9 FL (9.6-12.0); Monocytes % 13.4 % (1.7-12.7); Neutrophils % 74.9 % (38.7-73.9); Platelet Count 162 T/CUMM (130-400); Red Blood Count 3.46 MC/CUMM (3.8-5.5); Red Cell Distribution Width 15.8 % (9.3-17.3); White Blood Count 8.8 T/CUMM (4-12)
[2021-01-07 04:34] LABS: Calcium 8.1 MG/DL (8.5-10.1); Ferritin 774.4 ng/ml (8-252); Osmolality,Calculated 307.4 MOS/KG (273-304); Potassium 3.7 MMOL/L (3.5-5.1)
[2021-01-07 04:56] LABS: Hypochromasia 1+
[2021-01-07 04:57] LABS: Macrocytosis Slight; Platelet Estimate Adequate
[2021-01-07] MEDS: IVERMECTIN 3 MG TABLET PO SCH (08:49)
[2021-01-07] MEDS: DEXAMETHASONE 4 MG TABLET PO SCH ×3 (08:49→21:05)
[2021-01-07] MEDS: LACTULOSE 20 GM/30 ML UDCUP PO SCH (08:50)
[2021-01-07] MEDS: HEPARIN 5,000 UNIT/1 ML VIAL SUBCUT SCH ×2 (08:50→21:05)
[2021-01-07] MEDS: INSULIN LISPRO 100 UNIT/ML SUBCUT SCH ×4 (08:50→21:05)
[2021-01-07] MEDS: SODIUM CHLORIDE 0.9% 1,000 ML IV SCH ×2 (11:14→16:36)
[2021-01-07] MEDS ORDERED: MAGNESIUM SULF RIDER 2 GM/50 ML PREMIX IV PRN (15:05)
[2021-01-07] MEDS ORDERED: MAGNESIUM SULF RIDER 4 GM/100 ML PREMIX IV PRN (15:05)
[2021-01-08] MEDS: SODIUM CHLORIDE 0.9% 1,000 ML IV SCH ×3 (01:06→17:15)
[2021-01-08 09:10] LABS: Basophils % 0.1 % (0.0-0.8); Hemoglobin 9.6 GM/DL (12.0-16.0); Immature Granulocytes % 0.5 %; Immature Granulocytes Absolute 0.05 #; Lymphocytes # 1.2 10*3/uL (1.4-4.0); Mean Corpuscular HGB Conc 33.1 GM/DL (32-36); Mean Corpuscular Volume 87.1 FL (87-102); Mean Platelet Volume 10.5 FL (9.6-12.0); Monocytes % 12.1 % (1.7-12.7); Neutrophils % 75.3 % (38.7-73.9); Platelet Count 163 T/CUMM (130-400); Red Blood Count 3.33 MC/CUMM (3.8-5.5); Red Cell Distribution Width 15.9 % (9.3-17.3); White Blood Count 9.9 T/CUMM (4-12)
[2021-01-08 09:28] LABS: Osmolality,Calculated 321.8 MOS/KG (273-304); Potassium 3.7 MMOL/L (3.5-5.1)
[2021-01-08] MEDS: DEXAMETHASONE 4 MG TABLET PO SCH ×3 (09:44→21:15)
[2021-01-08] MEDS: HEPARIN 5,000 UNIT/1 ML VIAL SUBCUT SCH ×2 (09:44→21:15)
[2021-01-08] MEDS: INSULIN LISPRO 100 UNIT/ML SUBCUT SCH ×4 (09:45→22:10)
[2021-01-08] MEDS: IVERMECTIN 3 MG TABLET PO SCH (09:45)
[2021-01-08] MEDS ORDERED: MELATONIN 3 MG TABLET PO PRN (15:50)
[2021-01-08] MEDS: ZINC GLUCONATE 50 MG TABLET PO SCH (16:55)
[2021-01-08] MEDS: CHOLECALCIFEROL 1,000 UNIT TABLET PO SCH (16:55)
[2021-01-08] MEDS: CETIRIZINE 10 MG TABLET PO SCH (16:56)
[2021-01-08] MEDS: FAMOTIDINE 20 MG TABLET PO SCH (21:15)
[2021-01-08] MEDS: ASCORBIC ACID 500 MG TABLET PO SCH (21:15)
[2021-01-09] MEDS: ACETAMINOPHEN 500 MG TABLET PO PRN (01:30)
[2021-01-09 05:33] LABS: Hematocrit 29.4 VOL% (35.7-47.0); Hemoglobin 9.8 GM/DL (12.0-16.0); Immature Granulocytes % 0.8 %; Immature Granulocytes Absolute 0.07 #; Lymphocytes # 1.1 10*3/uL (1.4-4.0); Mean Corpuscular HGB Conc 33.3 GM/DL (32-36); Mean Corpuscular Volume 86.5 FL (87-102); Mean Platelet Volume 10.5 FL (9.6-12.0); Monocytes % 10.8 % (1.7-12.7); Neutrophils % 75.4 % (38.7-73.9); Platelet Count 159 T/CUMM (130-400); Red Cell Distribution Width 15.9 % (9.3-17.3); White Blood Count 8.8 T/CUMM (4-12)
[2021-01-09 06:06] LABS: Albumin 2.3 G/DL (3.4-5.0); Bilirubin,Total 0.5 MG/DL (0.20-1.00); Osmolality,Calculated 337.4 MOS/KG (273-304); Potassium 3.9 MMOL/L (3.5-5.1); Total Protein 7.9 G/DL (6.4-8.2)
[2021-01-09] MEDS: SODIUM CHLORIDE 0.9% 1,000 ML IV SCH ×3 (08:04→22:00)
[2021-01-09] MEDS ORDERED: INSULIN GLARGINE 100 UNIT/ML SUBCUT SCH (09:00)
[2021-01-09] MEDS: ZINC GLUCONATE 50 MG TABLET PO SCH (09:59)
[2021-01-09] MEDS: FAMOTIDINE 20 MG TABLET PO SCH (09:59)
[2021-01-09] MEDS: DEXAMETHASONE 4 MG TABLET PO SCH ×3 (09:59→23:01)
[2021-01-09] MEDS: ASCORBIC ACID 500 MG TABLET PO SCH ×2 (09:59→23:00)
[2021-01-09] MEDS: CETIRIZINE 10 MG TABLET PO SCH (09:59)
[2021-01-09] MEDS: AZITHROMYCIN 250 MG TABLET PO SCH (10:00)
[2021-01-09] MEDS: CHOLECALCIFEROL 1,000 UNIT TABLET PO SCH (10:00)
[2021-01-09] MEDS: IVERMECTIN 3 MG TABLET PO SCH (10:00)
[2021-01-09] MEDS: INSULIN LISPRO 100 UNIT/ML SUBCUT SCH ×4 (10:00→22:59)
[2021-01-09] MEDS: HEPARIN 5,000 UNIT/1 ML VIAL SUBCUT SCH ×2 (10:01→23:00)
[2021-01-10] MEDS: ACETAMINOPHEN 500 MG TABLET PO PRN (04:36)
[2021-01-10] MEDS ORDERED: MORPHINE 2 MG/1 ML SYRINGE IV ONE (05:02)
[2021-01-10 05:03] LABS: Basophils % 0.1 % (0.0-0.8); Hematocrit 32.5 VOL% (35.7-47.0); Hemoglobin 10.5 GM/DL (12.0-16.0); Immature Granulocytes % 0.9 %; Immature Granulocytes Absolute 0.13 #; Lymphocytes # 0.9 10*3/uL (1.4-4.0); Lymphocytes % 6.4 % (21.3-54.2); Mean Corpuscular HGB Conc 32.3 GM/DL (32-36); Mean Corpuscular Volume 87.6 FL (87-102); Monocytes % 5.6 % (1.7-12.7); Platelet Count 153 T/CUMM (130-400); Red Blood Count 3.71 MC/CUMM (3.8-5.5); Red Cell Distribution Width 16.2 % (9.3-17.3); White Blood Count 13.8 T/CUMM (4-12)
[2021-01-10 05:23] LABS: Albumin 2.2 G/DL (3.4-5.0); Bilirubin,Direct 0.1 MG/DL (0.0-0.20); Bilirubin,Indirect 0.3 MG/DL (0.0-1.0); Bilirubin,Total 0.4 MG/DL (0.20-1.00); Calcium 8.1 MG/DL (8.5-10.1); Osmolality,Calculated 325.5 MOS/KG (273-304); Potassium 4.2 MMOL/L (3.5-5.1)
[2021-01-10 06:17] LABS: ABG Base Excess -4.5 MMOL/L (-2.5-2.5); ABG HCO3 20.1 MMOL/L (20-26); ABG PCO2 56.8 MM HG (35-48); ABG PH 7.231 (7.35-7.45); ABG PO2 44.1 MM HG (80-95)
[2021-01-10] MEDS ORDERED: cefTRIAXone 1,000 MG in SODIUM CHLORIDE 0.9% 100 ML IV SCH (08:30)
[2021-01-10] MEDS ORDERED: FAMOTIDINE 20 MG TABLET PO SCH (09:00)
[2021-01-10] MEDS ORDERED: INSULIN GLARGINE 100 UNIT/ML SUBCUT SCH (09:00)
[2021-01-10] MEDS: HEPARIN 5,000 UNIT/1 ML VIAL SUBCUT SCH (09:23)
[2021-01-10] MEDS ORDERED: ROCURONIUM 100 MG/10 ML VIAL IV ONE ×2 (09:34→09:38)
[2021-01-10] MEDS ORDERED: ETOMIDATE 20 MG/10 ML VIAL IV ONE ×2 (09:37→09:40)
[2021-01-10] MEDS ORDERED: ALBUTEROL 2.5 MG/3 ML NEB RESP TX PRN (09:51)
[2021-01-10] MEDS ORDERED: ACETAMINOPHEN 325 MG TABLET PO PRN (09:52)
[2021-01-10] MEDS ORDERED: metroNIDAZOLE INJ 500 MG/100 ML PREMIX IV SCH (10:00)
[2021-01-10 10:13] LABS: ABG Base Excess -5.9 MMOL/L (-2.5-2.5); ABG HCO3 19.3 MMOL/L (20-26); ABG Oxygen Saturation 76.2 % (95-100); ABG PCO2 64.3 MM HG (35-48); ABG PO2 54.7 MM HG (80-95); ABG TCO2 22.3 MMOL/L (23-27)
[2021-01-10 10:16] LABS: ABG PH 7.175 (7.35-7.45)
[2021-01-10] MEDS ORDERED: SODIUM BICARBONATE 50 MEQ/50 ML SYRINGE IV ONE (11:27)
[2021-01-10] MEDS ORDERED: EPINEPHrine 1 MG/10 ML SYRINGE ONE (11:27)
[2021-01-10] MEDS: MIDAZOLAM 100 MG in SODIUM CHLORIDE 0.9% 80 ML IV PRN (11:49)
[2021-01-10] MEDS: fentaNYL INJ 2,500 MCG in SODIUM CHLORIDE 0.9% 75 ML IV PRN (11:49)
[2021-01-10] MEDS: INSULIN LISPRO 100 UNIT/ML SUBCUT SCH ×5 (12:58→21:03)
[2021-01-10] MEDS: PIPERACILLIN/TAZOBACTAM 3,375 MG in SODIUM CHLORIDE 0.9% 100 ML IV SCH (13:03)
[2021-01-10] MEDS: CETIRIZINE 10 MG TABLET PO SCH (13:04)
[2021-01-10] MEDS: ZINC GLUCONATE 50 MG TABLET PO SCH (13:04)
[2021-01-10] MEDS: ASCORBIC ACID 500 MG TABLET PO SCH ×2 (13:04→21:04)
[2021-01-10] MEDS: DEXAMETHASONE 4 MG/1 ML VIAL IV SCH (13:05)
[2021-01-10] MEDS: FAMOTIDINE 20 MG/2 ML VIAL IV SCH (13:05)
[2021-01-10] MEDS: AZITHROMYCIN 250 MG TABLET PO SCH (14:03)
[2021-01-10] MEDS: CHOLECALCIFEROL 1,000 UNIT TABLET PO SCH (14:03)
[2021-01-10] MEDS: SODIUM CHLORIDE 0.9% 1,000 ML IV SCH (14:05)
[2021-01-10] MEDS: IVERMECTIN 3 MG TABLET PO SCH (14:05)
[2021-01-10] MEDS: DEXAMETHASONE 4 MG TABLET PO SCH (14:06)
[2021-01-10] MEDS: HEPARIN DRIP 25,000 UNITS/500 ML PREMIX IV SCH (14:07)
[2021-01-10] MEDS ORDERED: ALBUTEROL INHALER 18 GM INH PRN (15:30)
[2021-01-10] MEDS ORDERED: GLUCAGON 1 MG VIAL IM PRN (20:35)
[2021-01-10] MEDS ORDERED: DEXTROSE 50% 25 GM/50 ML VIAL IV PRN (20:35)
[2021-01-10] MEDS: risperiDONE 1 MG TABLET PO SCH (21:04)
[2021-01-10] MEDS: BUDESONIDE/FORMOTEROL 160-4.5 INHALER 6 GM INH SCH (21:04)
[2021-01-11] MEDS: PIPERACILLIN/TAZOBACTAM 3,375 MG in SODIUM CHLORIDE 0.9% 100 ML IV SCH ×3 (00:23→22:16)
[2021-01-11] MEDS: fentaNYL INJ 2,500 MCG in SODIUM CHLORIDE 0.9% 75 ML IV PRN ×3 (00:44→22:04)
[2021-01-11] MEDS: INSULIN LISPRO 100 UNIT/ML SUBCUT SCH ×6 (00:52→21:12)
[2021-01-11 02:38] LABS: Basophils % 0.1 % (0.0-0.8); Hematocrit 32.2 VOL% (35.7-47.0); Hemoglobin 10.6 GM/DL (12.0-16.0); Immature Granulocytes % 0.7 %; Immature Granulocytes Absolute 0.08 #; Lymphocytes # 1.1 10*3/uL (1.4-4.0); Lymphocytes % 9.9 % (21.3-54.2); Mean Corpuscular HGB Conc 32.9 GM/DL (32-36); Mean Corpuscular Volume 86.8 FL (87-102); Monocytes % 4.8 % (1.7-12.7); Neutrophils % 84.5 % (38.7-73.9); Platelet Count 133 T/CUMM (130-400); Red Blood Count 3.71 MC/CUMM (3.8-5.5); Red Cell Distribution Width 16.2 % (9.3-17.3); White Blood Count 11.1 T/CUMM (4-12)
[2021-01-11 03:09] LABS: Albumin 1.9 G/DL (3.4-5.0); Bilirubin,Total 0.9 MG/DL (0.20-1.00); Calcium 8.1 MG/DL (8.5-10.1); Ferritin 9736.9 ng/ml (8-252); Osmolality,Calculated 332.1 MOS/KG (273-304); Potassium 4.4 MMOL/L (3.5-5.1); Total Protein 7.4 G/DL (6.4-8.2)
[2021-01-11 05:11] LABS: ABG Base Excess -1.3 MMOL/L (-2.5-2.5); ABG HCO3 25.3 MMOL/L (20-26); ABG Oxygen Saturation 93.7 % (95-100); ABG PCO2 50.1 MM HG (35-48); ABG PH 7.321 (7.35-7.45); ABG PO2 77.3 MM HG (80-95); ABG TCO2 26.8 MMOL/L (23-27)
[2021-01-11] MEDS: LEVOTHYROXINE 150 MCG TABLET PO SCH (05:38)
[2021-01-11] MEDS: DEXAMETHASONE 4 MG/1 ML VIAL IV SCH (11:21)
[2021-01-11] MEDS: SERTRALINE 50 MG TABLET PO SCH (11:22)
[2021-01-11] MEDS: ASCORBIC ACID 500 MG TABLET PO SCH ×2 (11:22→20:28)
[2021-01-11] MEDS: BUDESONIDE/FORMOTEROL 160-4.5 INHALER 6 GM INH SCH ×2 (11:22→20:28)
[2021-01-11] MEDS: ZINC GLUCONATE 50 MG TABLET PO SCH (11:22)
[2021-01-11] MEDS: CHOLECALCIFEROL 1,000 UNIT TABLET PO SCH (11:22)
[2021-01-11] MEDS: CETIRIZINE 10 MG TABLET PO SCH (11:22)
[2021-01-11] MEDS: AZITHROMYCIN 250 MG TABLET PO SCH (11:55)
[2021-01-11] MEDS: HEPARIN DRIP 25,000 UNITS/500 ML PREMIX IV SCH ×2 (12:09→14:24)
[2021-01-11] MEDS: risperiDONE 1 MG TABLET PO SCH ×2 (14:21→20:28)
[2021-01-11] MEDS: FAMOTIDINE 20 MG/2 ML VIAL IV SCH (14:22)
[2021-01-11] MEDS: INSULIN GLARGINE 100 UNIT/ML SUBCUT SCH (14:40)
[2021-01-11] MEDS ORDERED: ALBUMIN 25% 25 GM/100 ML VIAL IV PRN (14:55)
[2021-01-11] MEDS: MIDAZOLAM 100 MG in SODIUM CHLORIDE 0.9% 80 ML IV PRN (22:02)
[2021-01-12] MEDS: DEXAMETHASONE 4 MG/1 ML VIAL IV SCH ×2 (00:42→13:18)
[2021-01-12] MEDS: INSULIN LISPRO 100 UNIT/ML SUBCUT SCH ×6 (01:10→20:53)
[2021-01-12 03:07] LABS: Basophils % 0.1 % (0.0-0.8); Hematocrit 30.9 VOL% (35.7-47.0); Hemoglobin 9.9 GM/DL (12.0-16.0); Immature Granulocytes % 1.1 %; Immature Granulocytes Absolute 0.14 #; Mean Platelet Volume 11.7 FL (9.6-12.0); Monocytes % 7.6 % (1.7-12.7); NRBC # 0.06 10*3/uL; Neutrophils % 83.2 % (38.7-73.9); Platelet Count 146 T/CUMM (130-400); Red Blood Count 3.47 MC/CUMM (3.8-5.5); Red Cell Distribution Width 16.7 % (9.3-17.3); White Blood Count 12.2 T/CUMM (4-12)
[2021-01-12 03:29] LABS: Alanine Aminotransferase 311 U/L (13-56); Albumin 1.7 G/DL (3.4-5.0); Alkaline Phosphatase 69 U/L (45-117); Aspartate Amino Transferase 783 U/L (0-37); Bilirubin,Total < 0.39 MG/DL (0.20-1.00); Blood Urea Nitrogen 150 MG/DL (7-18); Calcium 7.9 MG/DL (8.5-10.1); Carbon Dioxide 26 MMOL/L (21-32); Estimated Glom Filtration Rate 13 ML/MIN; Glucose 290 MG/DL (74-106); Osmolality,Calculated 349.6 MOS/KG (273-304); Potassium 4.8 MMOL/L (3.5-5.1); Sodium 146 MMOL/L (136-145); Total Protein 7.1 G/DL (6.4-8.2)
[2021-01-12 05:14] LABS: ABG Base Excess -0.5 MMOL/L (-2.5-2.5); ABG HCO3 23.8 MMOL/L (20-26); ABG Oxygen Saturation 89.1 % (95-100); ABG PCO2 52.9 MM HG (35-48); ABG PH 7.307 (7.35-7.45); ABG PO2 65.8 MM HG (80-95); ABG TCO2 24.2 MMOL/L (23-27)
[2021-01-12] MEDS: LEVOTHYROXINE 150 MCG TABLET PO SCH (06:08)
[2021-01-12] MEDS: fentaNYL INJ 2,500 MCG in SODIUM CHLORIDE 0.9% 75 ML IV PRN ×2 (07:30→19:31)
[2021-01-12] MEDS: CHOLECALCIFEROL 1,000 UNIT TABLET PO SCH (08:01)
[2021-01-12] MEDS: ASCORBIC ACID 500 MG TABLET PO SCH ×2 (08:01→20:52)
[2021-01-12] MEDS: BUDESONIDE/FORMOTEROL 160-4.5 INHALER 6 GM INH SCH ×2 (08:01→20:53)
[2021-01-12] MEDS: CETIRIZINE 10 MG TABLET PO SCH (08:01)
[2021-01-12] MEDS: AZITHROMYCIN 250 MG TABLET PO SCH (08:01)
[2021-01-12] MEDS: ZINC GLUCONATE 50 MG TABLET PO SCH (08:01)
[2021-01-12] MEDS: INSULIN GLARGINE 100 UNIT/ML SUBCUT SCH (08:01)
[2021-01-12] MEDS: risperiDONE 1 MG TABLET PO SCH ×2 (08:27→20:52)
[2021-01-12] MEDS: SERTRALINE 50 MG TABLET PO SCH (08:28)
[2021-01-12] MEDS ORDERED: INSULIN GLARGINE 100 UNIT/ML SUBCUT ONE (09:00)
[2021-01-12] MEDS: MENTHOL/ZINC OXIDE OINT 71 GM JAR TOP SCH ×2 (09:11→20:53)
[2021-01-12] MEDS: FAMOTIDINE 20 MG/2 ML VIAL IV SCH (09:12)
[2021-01-12] MEDS: HEPARIN DRIP 25,000 UNITS/500 ML PREMIX IV SCH ×2 (09:12→20:20)
[2021-01-12] MEDS: MIDAZOLAM 100 MG in SODIUM CHLORIDE 0.9% 80 ML IV PRN ×2 (12:46→23:28)
[2021-01-12] MEDS: PIPERACILLIN/TAZOBACTAM 3,375 MG in SODIUM CHLORIDE 0.9% 100 ML IV SCH ×2 (13:17→22:53)
[2021-01-13] MEDS: INSULIN LISPRO 100 UNIT/ML SUBCUT SCH ×6 (00:33→21:30)
[2021-01-13] MEDS: DEXAMETHASONE 4 MG/1 ML VIAL IV SCH ×2 (00:33→14:10)
[2021-01-13 04:39] LABS: Basophils % 0.1 % (0.0-0.8); Hematocrit 30.9 VOL% (35.7-47.0); Hemoglobin 9.6 GM/DL (12.0-16.0); Immature Granulocytes % 2.4 %; Immature Granulocytes Absolute 0.33 #; Lymphocytes # 1.3 10*3/uL (1.4-4.0); Lymphocytes % 9.6 % (21.3-54.2); Mean Corpuscular HGB Conc 31.1 GM/DL (32-36); Mean Corpuscular Volume 89.8 FL (87-102); Mean Platelet Volume 12.3 FL (9.6-12.0); Monocytes % 10.5 % (1.7-12.7); Neutrophils % 77.4 % (38.7-73.9); Platelet Count 171 T/CUMM (130-400); Red Blood Count 3.44 MC/CUMM (3.8-5.5); Red Cell Distribution Width 16.9 % (9.3-17.3); White Blood Count 13.8 T/CUMM (4-12)
[2021-01-13 04:50] LABS: ABG Base Excess -0.9 MMOL/L (-2.5-2.5); ABG HCO3 25.4 MMOL/L (20-26); ABG Oxygen Saturation 98.7 % (95-100); ABG PCO2 49.9 MM HG (35-48); ABG PH 7.325 (7.35-7.45); ABG PO2 189.1 MM HG (80-95)
[2021-01-13 05:02] LABS: Hypochromasia 1+; Microcytosis 1+
[2021-01-13 05:03] LABS: Platelet Estimate Adequate
[2021-01-13 05:19] LABS: Albumin 1.8 G/DL (3.4-5.0); Bilirubin,Total 0.4 MG/DL (0.20-1.00); Calcium 8.1 MG/DL (8.5-10.1); Osmolality,Calculated 345.8 MOS/KG (273-304); Total Protein 6.9 G/DL (6.4-8.2)
[2021-01-13] MEDS: LEVOTHYROXINE 150 MCG TABLET PO SCH (05:37)
[2021-01-13] MEDS: fentaNYL INJ 2,500 MCG in SODIUM CHLORIDE 0.9% 75 ML IV PRN ×3 (06:55→22:00)
[2021-01-13] MEDS: CHOLECALCIFEROL 1,000 UNIT TABLET PO SCH (08:34)
[2021-01-13] MEDS: ZINC GLUCONATE 50 MG TABLET PO SCH (08:35)
[2021-01-13] MEDS: ASCORBIC ACID 500 MG TABLET PO SCH ×2 (08:35→21:31)
[2021-01-13] MEDS: CETIRIZINE 10 MG TABLET PO SCH (08:35)
[2021-01-13] MEDS: SERTRALINE 50 MG TABLET PO SCH (08:35)
[2021-01-13] MEDS: MENTHOL/ZINC OXIDE OINT 71 GM JAR TOP SCH ×2 (08:36→21:31)
[2021-01-13] MEDS: INSULIN GLARGINE 100 UNIT/ML SUBCUT SCH (08:36)
[2021-01-13] MEDS: BUDESONIDE/FORMOTEROL 160-4.5 INHALER 6 GM INH SCH ×2 (08:36→21:32)
[2021-01-13] MEDS: risperiDONE 1 MG TABLET PO SCH ×2 (08:38→21:31)
[2021-01-13] MEDS: HEPARIN DRIP 25,000 UNITS/500 ML PREMIX IV SCH ×2 (09:25→23:04)
[2021-01-13] MEDS: FAMOTIDINE 20 MG/2 ML VIAL IV SCH (09:25)
[2021-01-13] MEDS: MIDAZOLAM 100 MG in SODIUM CHLORIDE 0.9% 80 ML IV PRN ×2 (10:41→18:11)
[2021-01-13] MEDS: PIPERACILLIN/TAZOBACTAM 3,375 MG in SODIUM CHLORIDE 0.9% 100 ML IV SCH ×2 (11:10→22:43)
[2021-01-13] MEDS: CARBIDOPA/LEVODOPA 25-100 MG TABLET PO SCH ×2 (16:30→21:31)
[2021-01-14] MEDS: MIDAZOLAM 100 MG in SODIUM CHLORIDE 0.9% 80 ML IV PRN ×4 (00:59→17:53)
[2021-01-14] MEDS: INSULIN LISPRO 100 UNIT/ML SUBCUT SCH ×6 (01:17→21:39)
[2021-01-14] MEDS: DEXAMETHASONE 4 MG/1 ML VIAL IV SCH ×2 (01:19→12:03)
[2021-01-14] MEDS ORDERED: ROCURONIUM 100 MG/10 ML VIAL IV ONE (02:39)
[2021-01-14] MEDS: ROCURONIUM 500 MG in SODIUM CHLORIDE 0.9% 500 ML IV PRN ×3 (03:30→19:00)
[2021-01-14 04:39] LABS: Basophils # 0.1 10*3/uL (0.0-0.2); Basophils % 0.3 % (0.0-0.8); Hematocrit 29.7 VOL% (35.7-47.0); Hemoglobin 9.5 GM/DL (12.0-16.0); Immature Granulocytes % 5.2 %; Immature Granulocytes Absolute 0.87 #; Lymphocytes # 1.4 10*3/uL (1.4-4.0); Lymphocytes % 8.5 % (21.3-54.2); Mean Corpuscular Volume 89.2 FL (87-102); Mean Platelet Volume 12.2 FL (9.6-12.0); NRBC # 0.55 10*3/uL; Platelet Count 181 T/CUMM (130-400); Red Blood Count 3.33 MC/CUMM (3.8-5.5); Red Cell Distribution Width 17.1 % (9.3-17.3); White Blood Count 16.7 T/CUMM (4-12)
[2021-01-14 05:19] LABS: Albumin 1.7 G/DL (3.4-5.0); Bilirubin,Total 0.5 MG/DL (0.20-1.00); Calcium 7.6 MG/DL (8.5-10.1); Ferritin 3947.4 ng/ml (8-252); Osmolality,Calculated 359.7 MOS/KG (273-304); Potassium 5.3 MMOL/L (3.5-5.1); Total Protein 6.7 G/DL (6.4-8.2)
[2021-01-14 05:42] LABS: ABG Base Excess -2.4 MMOL/L (-2.5-2.5); ABG Oxygen Saturation 93.8 % (95-100); ABG PCO2 56.7 MM HG (35-48); ABG PH 7.263 (7.35-7.45); ABG PO2 82.1 MM HG (80-95); ABG TCO2 26.8 MMOL/L (23-27)
[2021-01-14] MEDS: LEVOTHYROXINE 150 MCG TABLET PO SCH (06:04)
[2021-01-14 08:07] LABS: Lymphocytes 1 % (20-55); Nucleated Red Blood Cells 2 (0-5); Platelet Estimate Adequate; Segmented Neutrophils 96 % (50-85); Total Cells Counted 100
[2021-01-14] MEDS: fentaNYL INJ 2,500 MCG in SODIUM CHLORIDE 0.9% 75 ML IV PRN ×3 (08:45→21:43)
[2021-01-14] MEDS: CETIRIZINE 10 MG TABLET PO SCH (09:08)
[2021-01-14] MEDS: INSULIN GLARGINE 100 UNIT/ML SUBCUT SCH (09:08)
[2021-01-14] MEDS: MENTHOL/ZINC OXIDE OINT 71 GM JAR TOP SCH ×2 (09:08→21:40)
[2021-01-14] MEDS: risperiDONE 1 MG TABLET PO SCH ×2 (09:08→21:39)
[2021-01-14] MEDS: FAMOTIDINE 20 MG/2 ML VIAL IV SCH (09:08)
[2021-01-14] MEDS: ZINC GLUCONATE 50 MG TABLET PO SCH (09:08)
[2021-01-14] MEDS: CARBIDOPA/LEVODOPA 25-100 MG TABLET PO SCH ×3 (09:08→21:44)
[2021-01-14] MEDS: SERTRALINE 50 MG TABLET PO SCH (09:08)
[2021-01-14] MEDS: ASCORBIC ACID 500 MG TABLET PO SCH ×2 (09:08→21:39)
[2021-01-14] MEDS: CHOLECALCIFEROL 1,000 UNIT TABLET PO SCH (09:08)
[2021-01-14] MEDS: BUDESONIDE/FORMOTEROL 160-4.5 INHALER 6 GM INH SCH ×2 (09:08→21:40)
[2021-01-14] MEDS: HEPARIN DRIP 25,000 UNITS/500 ML PREMIX IV SCH ×2 (11:11→23:23)
[2021-01-14] MEDS ORDERED: SODIUM POLYSTYRENE SULFATE 15 GM/60 ML BOTTLE PO ONE (12:10)
[2021-01-14] MEDS: PIPERACILLIN/TAZOBACTAM 3,375 MG in SODIUM CHLORIDE 0.9% 100 ML IV SCH ×2 (13:00→23:00)
[2021-01-14 17:16] LABS: Calcium 7.7 MG/DL (8.5-10.1); Osmolality,Calculated 356.8 MOS/KG (273-304); Potassium 5.1 MMOL/L (3.5-5.1)
[2021-01-14] MEDS ORDERED: INSULIN GLARGINE 100 UNIT/ML SUBCUT SCH (21:00)
[2021-01-14 21:12] LABS: ABG HCO3 26.8 MMOL/L (20-26); ABG Oxygen Saturation 88.2 % (95-100); ABG PO2 72.7 MM HG (80-95); ABG TCO2 29.6 MMOL/L (23-27)
[2021-01-14 21:18] LABS: ABG PH 7.073 (7.35-7.45)
[2021-01-14 21:19] LABS: ABG PCO2 93.8 MM HG (35-48)
[2021-01-14 22:37] LABS: ABG Base Excess -5.6 MMOL/L (-2.5-2.5); ABG HCO3 19.8 MMOL/L (20-26); ABG Oxygen Saturation 98.1 % (95-100); ABG TCO2 24.5 MMOL/L (23-27)
[2021-01-14 22:39] LABS: ABG PCO2 80.3 MM HG (35-48); ABG PH 7.115 (7.35-7.45)
[2021-01-14] MEDS ORDERED: SODIUM BICARBONATE 50 MEQ/50 ML VIAL IV ONE ×2 (23:05→23:11)
[2021-01-15] MEDS ORDERED: NOREPINEPHRINE 4 MG/4 ML VIAL IV ONE (00:04)
[2021-01-15] MEDS: INSULIN LISPRO 100 UNIT/ML SUBCUT SCH ×6 (00:25→21:16)
[2021-01-15] MEDS: MIDAZOLAM 100 MG in SODIUM CHLORIDE 0.9% 80 ML IV PRN ×4 (00:43→18:06)
[2021-01-15] MEDS: NOREPINEPHRINE 8 MG in SODIUM CHLORIDE 0.9% 242 ML IV PRN ×2 (01:40→18:07)
[2021-01-15] MEDS: DEXAMETHASONE 4 MG/1 ML VIAL IV SCH ×2 (01:43→14:04)
[2021-01-15] MEDS: fentaNYL INJ 2,500 MCG in SODIUM CHLORIDE 0.9% 75 ML IV PRN ×6 (01:49→23:43)
[2021-01-15] MEDS: ROCURONIUM 500 MG in SODIUM CHLORIDE 0.9% 500 ML IV PRN ×3 (02:27→13:00)
[2021-01-15 04:52] LABS: ABG Base Excess -3.2 MMOL/L (-2.5-2.5); ABG HCO3 25.2 MMOL/L (20-26); ABG Oxygen Saturation 94.4 % (95-100); ABG PCO2 62.6 MM HG (35-48); ABG PH 7.222 (7.35-7.45); ABG PO2 83.2 MM HG (80-95); ABG TCO2 27.1 MMOL/L (23-27)
[2021-01-15 04:55] LABS: Basophils # 0.1 10*3/uL (0.0-0.2); Basophils % 0.4 % (0.0-0.8); Hematocrit 33.6 VOL% (35.7-47.0); Hemoglobin 10.2 GM/DL (12.0-16.0); Immature Granulocytes % 7.9 %; Immature Granulocytes Absolute 1.92 #; Lymphocytes # 1.8 10*3/uL (1.4-4.0); Lymphocytes % 7.5 % (21.3-54.2); Mean Corpuscular HGB Conc 30.4 GM/DL (32-36); Mean Corpuscular Volume 91.8 FL (87-102); Mean Platelet Volume 12.8 FL (9.6-12.0); Monocytes % 10.6 % (1.7-12.7); Neutrophils % 73.6 % (38.7-73.9); Platelet Count 229 T/CUMM (130-400); Red Blood Count 3.66 MC/CUMM (3.8-5.5); Red Cell Distribution Width 17.5 % (9.3-17.3); White Blood Count 24.2 T/CUMM (4-12)
[2021-01-15] MEDS: LEVOTHYROXINE 150 MCG TABLET PO SCH (06:30)
[2021-01-15] MEDS: CARBIDOPA/LEVODOPA 25-100 MG TABLET PO SCH ×3 (09:16→21:17)
[2021-01-15] MEDS: CETIRIZINE 10 MG TABLET PO SCH (09:16)
[2021-01-15] MEDS: BUDESONIDE/FORMOTEROL 160-4.5 INHALER 6 GM INH SCH ×2 (09:16→21:50)
[2021-01-15] MEDS: SERTRALINE 50 MG TABLET PO SCH (09:16)
[2021-01-15] MEDS: FAMOTIDINE 20 MG/2 ML VIAL IV SCH (09:16)
[2021-01-15] MEDS: CHOLECALCIFEROL 1,000 UNIT TABLET PO SCH (09:16)
[2021-01-15] MEDS: risperiDONE 1 MG TABLET PO SCH ×2 (09:16→21:21)
[2021-01-15] MEDS: MENTHOL/ZINC OXIDE OINT 71 GM JAR TOP SCH ×2 (09:16→21:50)
[2021-01-15] MEDS: INSULIN GLARGINE 100 UNIT/ML SUBCUT SCH (09:16)
[2021-01-15] MEDS: ASCORBIC ACID 500 MG TABLET PO SCH ×2 (09:16→21:17)
[2021-01-15] MEDS: ZINC GLUCONATE 50 MG TABLET PO SCH (09:16)
[2021-01-15 10:10] LABS: Atypical Lymphocytes Few; Band Neutrophils 1 % (0-10); Lymphocytes 13 % (20-55); Metamyelocytes 2 %; Nucleated Red Blood Cells 8 (0-5); Platelet Estimate Normal; Segmented Neutrophils 77 % (50-85); Total Cells Counted 100
[2021-01-15] MEDS: HEPARIN DRIP 25,000 UNITS/500 ML PREMIX IV SCH ×2 (10:10→21:28)
[2021-01-15 11:02] LABS: Albumin 1.6 G/DL (3.4-5.0); Bilirubin,Total 0.4 MG/DL (0.20-1.00); Calcium 7.1 MG/DL (8.5-10.1); Osmolality,Calculated 362.3 MOS/KG (273-304); Potassium 5.6 MMOL/L (3.5-5.1); Total Protein 6.6 G/DL (6.4-8.2)
[2021-01-15] MEDS: PIPERACILLIN/TAZOBACTAM 3,375 MG in SODIUM CHLORIDE 0.9% 100 ML IV SCH ×2 (11:21→22:48)
[2021-01-15] MEDS ORDERED: SODIUM POLYSTYRENE SULFATE 15 GM/60 ML BOTTLE PO ONE (11:54)
[2021-01-15] MEDS ORDERED: INSULIN GLARGINE 100 UNIT/ML SUBCUT SCH (21:00)
[2021-01-16] MEDS: MIDAZOLAM 100 MG in SODIUM CHLORIDE 0.9% 80 ML IV PRN (00:33)
[2021-01-16] MEDS: DEXAMETHASONE 4 MG/1 ML VIAL IV SCH (00:35)
[2021-01-16] MEDS: INSULIN LISPRO 100 UNIT/ML SUBCUT SCH ×3 (00:35→10:46)
[2021-01-16] MEDS: ROCURONIUM 500 MG in SODIUM CHLORIDE 0.9% 500 ML IV PRN (03:47)
[2021-01-16 04:52] LABS: ABG Base Excess -5.2 MMOL/L (-2.5-2.5); ABG HCO3 24.1 MMOL/L (20-26); ABG Oxygen Saturation 91.4 % (95-100); ABG PO2 73.6 MM HG (80-95); ABG TCO2 26.2 MMOL/L (23-27)
[2021-01-16] MEDS: fentaNYL INJ 2,500 MCG in SODIUM CHLORIDE 0.9% 75 ML IV PRN (04:53)
[2021-01-16 05:16] LABS: ABG PH 7.158 (7.35-7.45)
[2021-01-16 05:27] LABS: Basophils # 0.1 10*3/uL (0.0-0.2); Basophils % 0.6 % (0.0-0.8); Hemoglobin 9.6 GM/DL (12.0-16.0); Immature Granulocytes % 14.1 %; Immature Granulocytes Absolute 3.26 #; Lymphocytes # 1.4 10*3/uL (1.4-4.0); Lymphocytes % 6.1 % (21.3-54.2); Mean Platelet Volume 12.6 FL (9.6-12.0); Monocytes % 10.4 % (1.7-12.7); NRBC # 1.17 10*3/uL; Neutrophils % 68.8 % (38.7-73.9); Platelet Count 201 T/CUMM (130-400); Red Blood Count 3.48 MC/CUMM (3.8-5.5); Red Cell Distribution Width 17.8 % (9.3-17.3); White Blood Count 23.2 T/CUMM (4-12)
[2021-01-16] MEDS ORDERED: SODIUM BICARBONATE 50 MEQ/50 ML VIAL IV ONE (05:31)
[2021-01-16 06:02] LABS: Band Neutrophils 4 % (0-10); Hypochromasia Slight; Lymphocytes 5 % (20-55); Myelocytes 1 %; Nucleated Red Blood Cells 6 (0-5); Platelet Estimate Normal; Segmented Neutrophils 84 % (50-85); Total Cells Counted 100
[2021-01-16] MEDS: LEVOTHYROXINE 150 MCG TABLET PO SCH (06:06)
[2021-01-16 07:07] VITALS: BP 100/51
[2021-01-16] MEDS ORDERED: EPINEPHrine 1 MG/10 ML SYRINGE IV ONE (08:19)
[2021-01-16] MEDS ORDERED: SODIUM BICARBONATE 50 MEQ/50 ML SYRINGE IV ONE (08:19)
[2021-01-16] MEDS ORDERED: CALCIUM CHLORIDE 1,000 MG/10 ML SYRINGE IV ONE (08:19)
[2021-01-16 08:26] LABS: Osmolality,Calculated 361.6 MOS/KG (273-304)
[2021-01-16 08:27] LABS: Potassium 5.7 MMOL/L (3.5-5.1)
[2021-01-16] MEDS: INSULIN GLARGINE 100 UNIT/ML SUBCUT SCH (10:46)
[2021-01-16] MEDS: MENTHOL/ZINC OXIDE OINT 71 GM JAR TOP SCH (10:46)
[2021-01-16] MEDS: BUDESONIDE/FORMOTEROL 160-4.5 INHALER 6 GM INH SCH (10:47)
[2021-01-16] MEDS: risperiDONE 1 MG TABLET PO SCH (10:47)
[2021-01-16] MEDS: ZINC GLUCONATE 50 MG TABLET PO SCH (10:47)
[2021-01-16] MEDS: ASCORBIC ACID 500 MG TABLET PO SCH (10:47)
[2021-01-16] MEDS: CARBIDOPA/LEVODOPA 25-100 MG TABLET PO SCH (10:47)
[2021-01-16] MEDS: SERTRALINE 50 MG TABLET PO SCH (10:47)
[2021-01-16] MEDS: CHOLECALCIFEROL 1,000 UNIT TABLET PO SCH (10:47)
[2021-01-16] MEDS: HEPARIN DRIP 25,000 UNITS/500 ML PREMIX IV SCH (10:48)
[2021-01-16] MEDS: FAMOTIDINE 20 MG/2 ML VIAL IV SCH (10:48)
[2021-01-16] MEDS: CETIRIZINE 10 MG TABLET PO SCH (10:48)
[2021-01-17 05:06] LABS: ABG PCO2 69.4 MM HG (35-48)
== END 2021-01-16 08:20 | disposition expired | DRG 207 ==
LOC: EDUNIT# → EDBD → N.ED 10:44 → N.EDINP 14:08 → SUATTDRO 14:08 → N.EDINP 18:04 → N.2E 19:02 → N.CC 01-10 09:22
PROVIDERS: ADMIT Nurse Practitioner Adult Health; ATTEND Internal Medicine